=== PATIENT | female | born 1930 | race Caucasian/White ===

== ENCOUNTER 2017-03-13 10:47 | Emergency (ER) | payer MEDICARE, OTHER ==
[2017-03-13] MEDS ORDERED: Pepcid 20 MG VIAL IV ONE ×2 (10:58→11:04)
[2017-03-13] MEDS ORDERED: BABY ASPIRIN 81 MG CHEW PO ONE (10:58)
[2017-03-13] MEDS ORDERED: Sodium Chloride 0.9% 1000 ML 1,000 ML IV SCH (11:00)
[2017-03-13] MEDS ORDERED: BABY ASPIRIN 81 MG CHEW ONE (11:04)
[2017-03-13] MEDS ORDERED: Sodium Chloride 0.9% 1000 ML 1,000 ML ONE (11:04)
[2017-03-13 11:09] LABS: BASOPHIL % 0.8 % (0.0-0.4); Eosinophil % 0.3 % (0.00-5.0); Granulocytes % 68.4 % (36.0-66.0); Lymphocytes % 21.9 % (24.0-44.0); Mean Cell Volume 92.2 fl (78-100); Mean Corpuscular Hemoglobin 29.7 pg (26-32); Mean Platelet Volume 9.5 fl (6-9.5); Monocytes % 8.6 % (0.0-12.0); Platelet Count 224 K/mm3 (150-450); Red Cell Distribution Width 13.5 % (11.5-14.0); White Blood Count 8.7 K/mm3 (4.0-10.5)
--- NOTE | 2017-03-13 11:10 | ERPHSYRPT ---
- History of Present Illness Time Seen by Provider: 03/13/17 10:58 Historian: patient, family (daughter) Patient Subjective Stated Complaint: states chest starting aching this AM at approx 0830 today. denies sweating with slight SOB at thhat time. denies CP at present time Triage Nursing Assessment: denies CP at present.. lungs clear bilateral. no SOB noted Physician History: CC: chest pain Hx: 86 y/o patient of Dr Katz. She has hx of leaky valve, high chol , and dementia. She stays with daughters. She was fine yesterday, with her normal gradual decline in health condition. Today was in car riding to town and had chest pain, sweating, and aching. The chest pain is now gone. It was an inside pain worrisome for heart. No blood thinners. Has declined cardiac procedures in the past due to frailty. She takes digoxin. Timing/Duration: today (8:30AM) Quality: aching Nitro Today/Relief: no nitro taken today Aspirin Treatment Today: no aspirin today Allergies/Adverse Reactions: calcitonin,salmon,synthetic [From Miacalcin] Allergy (Verified 02/06/14 11:42) erythromycin base [Erythromycin Base] Allergy (Verified 02/06/14 11:42) Rash raloxifene HCl [From Evista] Allergy (Verified 02/06/14 11:42) Home Medications: Amlodipine Besylate [Norvasc] 5 mg PO DAILY 01/11/14 [History] Aspirin 81 mg PO DAILY 01/11/14 [History] Atorvastatin Calcium [Lipitor] 10 mg PO DAILY 01/11/14 [History] Digoxin 0.25 mg PO DAILY 01/11/14 [History] Furosemide 20 mg PO DAILY 01/11/14 [History] Alprazolam 0.25 mg [xanAX 0.25 MG] 0.25 mg PO HS 05/06/16 [History] Calcium Carb/Vit D3/Minerals [Calcium 600+D Plus Minerals Tb] 1 each PO DAILY [History] Calcium Carbonate/Vitamin D3 [Vitamin D-3 400 Units Tablet] 1 each PO DAILY 06/11 [History] FA/Mv,Ca,Iron,Min/Lycopene/Lut [Centrum Tablet] 1 each PO DAILY 05/06/16 [ History] Ferrous Gluconate [Iron] 240 mg PO DAILY 05/06/16 [History] Glucos/MSM/Colg II/C/Man/Hrb21 [Glucosamine-MSM Complex Cap] 1 each PO DAILY 06/11 [History] Krill/Om3/Dha/Epa/Om6/Lip/Astx [Krill Oil 1,000 mg Softgel] 1 each PO DAILY 06/11 [History] Levothyroxine Sodium 112 Mcg [Synthroid 112 Mcg] 37.5 mcg PO DAILY [History] Potassium 99 mg PO DAILY 05/06/16 [History] Hx Tetanus, Diphtheria Vaccination/Date Given: Yes Hx Influenza Vaccination/Date Given: Yes Hx Pneumococcal Vaccination/Date Given: Yes Immunizations Up to Date: Yes - Review of Systems Constitutional: No Fever, No Chills Eyes: No Symptoms Ears, Nose, & Throat: No Symptoms Respiratory: Dyspnea, No Cough Cardiac: Chest Pain (currently gone), No Edema, No Syncope Abdominal/Gastrointestinal: No Abdominal Pain, No Vomiting, No Diarrhea Skin: No Rash Neurological: No Headache All Other Systems: Reviewed and Negative - Past Medical History Pertinent Past Medical History: Yes Neurological History: No Pertinent History ENT History: No Pertinent History Cardiac History: Hypertension, Other Respiratory History: No Pertinent History Endocrine Medical History: No Pertinent History Musculoskeletal History: No Pertinent History GI Medical History: No Pertinent History History: No Pertinent History Psycho-Social History: No Pertinent History Female Reproductive Disorders: No Pertinent History Other Medical History: leaking heart valve - Past Surgical History Past Surgical History: Yes Neuro Surgical History: No Pertinent History Cardiac: No Pertinent History Respiratory: No Pertinent History Gastrointestinal: Cholecystectomy Genitourinary: No Pertinent History Musculoskeletal: No Pertinent History Female Surgical History: No Pertinent History - Social History Smoking Status: Never smoker Exposure to second hand smoke: No Alcohol Use: None Drug Use: none Patient Lives Alone: No (close support from daughters) - Female History Hx Now: No - Nursing Vital Signs Nursing Vital Signs: Initial Vital Signs Temperature 97.6 F 03/13/17 10:49 Pulse Rate 69 03/13/17 10:49 Respiratory Rate 18 03/13/17 10:49 Blood Pressure 137/70 03/13/17 10:49 O2 Sat by Pulse Oximetry 99 03/13/17 10:49 Pain Scale Pain Intensity 0 - Physical Exam General Appearance: alert, other (frail, pleasant elderly lady) Eye Exam: PERRL/EOMI Ears, Nose, Throat Exam: moist mucous membranes Neck Exam: normal inspection, non-tender, supple Respiratory Exam: diminished breath sounds Cardiovascular Exam: regular rate/rhythm Gastrointestinal/Abdomen Exam: soft, No tenderness, No guarding Extremity Exam: pedal edema (trace) Neurologic Exam: alert, cooperative, sensation nml, other (mostly oriented but answers are a little vague consistent with early dementia), No motor deficits Skin Exam: warm, dry SpO2 Interpretation: normal SpO2: 98 Oxygen Delivery: Room Air - Course Nursing assessment & vital signs reviewed: Yes EKG Interpreted by Me: RATE (66), Sinus Rhythm, Left Bundle Branch Block (QRS 146), Non-specific ST Changes, Other (no old tracing here for comparison- attempting to obtain from office) - Radiology Exams cxr X-ray Interpretation: Teleradiologist Report, Negative Ordered Tests: Active Orders 24 hr Category Date Time Status Property Utilization Manager STAT Care 03/13/17 10:58 Active EKG-ER Only STAT Care 03/13/17 10:58 Active IV Insertion STAT Care 03/13/17 10:58 Active Oxygen-ED Only NASAL CANNULA 2 lpm Care 03/13/17 10:58 Active Pulse Oximetry (ED) STAT Care 03/13/17 10:58 Active CHEST 1 VIEW (PORTABLE) Stat Exams 03/13/17 10:58 Completed CBC W DIFF Stat Lab 03/13/17 10:50 Completed CMP Stat Lab 03/13/17 10:50 Completed DIGOXIN Stat Lab 03/13/17 10:50 Completed NT PRO BNP Stat Lab 03/13/17 10:50 Completed PROTIME WITH INR Stat Lab 03/13/17 10:50 Completed PTT Stat Lab 03/13/17 10:50 Completed TROPONIN Q3H Lab 03/13/17 10:50 Completed TROPONIN Q3H Lab 03/13/17 14:00 Ordered TROPONIN Q3H Lab 03/13/17 17:00 Ordered TROPONIN Q3H Lab 03/13/17 20:00 Ordered TROPONIN Q3H Lab 03/13/17 23:00 Ordered Medication Summary Generic Name Dose Route Start Last Admin Trade Name Freq PRN Reason Stop Dose Admin Sodium Chloride 1,000 mls @ 50 mls/hr 03/13/17 11:00 03/13/17 11:09 Sodium Chloride 0.9% 1000 Ml IV 04/12/17 10:59 50 mls/hr .Q20H FIDEL Administration Discontinued Medications Generic Name Dose Route Start Last Admin Trade Name Aliza PRN Reason Stop Dose Admin Aspirin 324 mg 03/13/17 10:58 03/13/17 11:09 Baby Aspirin 81 Mg Chew PO 03/13/17 10:59 324 mg STAT ONE Administration Aspirin Confirm 03/13/17 11:04 Baby Aspirin 81 Mg Chew Administered 03/13/17 11:05 Dose 324 mg .ROUTE .STK-[employer] ONE Famotidine 20 mg 03/13/17 10:58 03/13/17 11:09 Pepcid 20 Mg Vial IV 03/13/17 10:59 20 mg STAT ONE Administration Famotidine Confirm 03/13/17 11:04 Pepcid 20 Mg Vial Administered 03/13/17 11:05 Dose 20 mg IV .STK-MED ONE Lab/Rad Data: Laboratory Result Diagrams 03/13/17 10:50 03/13/17 10:50 Laboratory Results 03/13/17 03/13/17 03/13/17 Range/Units 10:50 10:50 10:50 WBC (4.0-10.5) K/mm3 RBC (4.1-5.4) M/mm3 Hgb (12.0-16.0) gm/dl Hct (35-47) % MCV (78-100) fl MCH (26-32) pg MCHC (32-36) g/dl RDW (11.5-14.0) % Plt Count (150-450) K/mm3 MPV (6-9.5) fl Gran % (36.0-66.0) % Lymphocytes % (24.0-44.0) % Monocytes % (0.0-12.0) % Eosinophils % (0.00-5.0) % Basophils % (0.0-0.4) % Basophils # (0-0.4) INR 1.08 (0.8-3.0) APTT 38.2 H (25.3-37.0) SECONDS Sodium 139 (136-145) mEq/L Potassium 3.6 (3.5-5.1) mEq/L Chloride 103 (98-107) mEq/L Carbon Dioxide 29.6 (21-32) mEq/L Anion Gap 9.7 (5-15) MEQ/L BUN 14 (9-20) mg/dL Creatinine 0.69 (0.55-1.30) mg/dl Estimated GFR > 60 ML/MIN Glucose 95 (70-110) MG/DL Calcium 9.7 (8.5-10.1) mg/dL Total Bilirubin 0.60 (0.2-1.0) mg/dL AST 33 (15-37) U/L ALT 22 (12-78) U/L Alkaline Phosphatase 76 (46-116) U/L Troponin I < 0.017 (0.000-0.056) ng/ml NT-Pro-B Natriuret Pep 528 H (0-450) pg/ml Serum Total Protein 7.6 (6.4-8.2) gm/dL Albumin 3.6 (3.4-5.0) g/dL Digoxin 1.95 H* (0.5-1.5) ng/ml 03/13/17 Range/Units 10:50 WBC 8.7 (4.0-10.5) K/mm3 RBC 3.60 L (4.1-5.4) M/mm3 Hgb 10.7 L (12.0-16.0) gm/dl Hct 33.2 L (35-47) % MCV 92.2 (78-100) fl MCH 29.7 (26-32) pg MCHC 32.2 (32-36) g/dl RDW 13.5 (11.5-14.0) % Plt Count 224 (150-450) K/mm3 MPV 9.5 (6-9.5) fl Gran % 68.4 H (36.0-66.0) % Lymphocytes % 21.9 L (24.0-44.0) % Monocytes % 8.6 (0.0-12.0) % Eosinophils % 0.3 (0.00-5.0) % Basophils % 0.8 (0.0-0.4) % Basophils # 0.07 (0-0.4) INR (0.8-3.0) APTT (25.3-37.0) SECONDS Sodium (136-145) mEq/L Potassium (3.5-5.1) mEq/L Chloride (98-107) mEq/L Carbon Dioxide (21-32) mEq/L Anion Gap (5-15) MEQ/L BUN (9-20) mg/dL Creatinine (0.55-1.30) mg/dl Estimated GFR ML/MIN Glucose (70-110) MG/DL Calcium (8.5-10.1) mg/dL Total Bilirubin (0.2-1.0) mg/dL AST (15-37) U/L ALT (12-78) U/L Alkaline Phosphatase (46-116) U/L Troponin I (0.000-0.056) ng/ml NT-Pro-B Natriuret Pep (0-450) pg/ml Serum Total Protein (6.4-8.2) gm/dL Albumin (3.4-5.0) g/dL Digoxin (0.5-1.5) ng/ml - Progress Progress Note: 03/13/17 12:17 Remains pain free. No chest pain now. She has living will and has declined open heart procedures or angioplasty. She does want CPR. Called Dr Arnie Dhillon and will place in obs. Will see patient in: hospital (observation) Counseled pt/family regarding: lab results, diagnosis, need for follow-up, rad results - Departure Time of Disposition: 12:18 Departure Disposition: Observation Clinical Impression: Chest pain, rule out acute myocardial infarction, Digitalis toxicity Condition: Fair Critical Care Time: No Referrals: JAMILAH DHILLON [Primary Care Provider] -
[2017-03-13 11:22] LABS: INR 1.08 (0.8-3.0); PROTIME 12.2 SECONDS (9.95-12.35)
[2017-03-13 11:25] LABS: PTT 38.2 SECONDS (25.3-37.0)
--- NOTE | 2017-03-13 11:27 | XRAY ---
Indication: Chest pain. Comparison: June 27, 2007. Portable chest again hyperinflated and clear. Heart and mediastinal structures within normal limits for AP portable technique. Bony thorax intact again with osteopenia and degenerative changes. Impression: Stable nonacute hyperinflated chest.
[2017-03-13 11:40] LABS: ALBUMIN 3.6 g/dL (3.4-5.0); ALKALINE PHOSPHATASE 76 U/L (46-116); ANION GAP 9.7 MEQ/L (5-15); BLOOD UREA NITROGEN 14 mg/dL (9-20); CHLORIDE 103 mEq/L (98-107); Carbon Dioxide 29.6 mEq/L (21-32); Glucose 95 MG/DL (70-110); Potassium 3.6 mEq/L (3.5-5.1); SGOT/AST 33 U/L (15-37); SGPT/ALT 22 U/L (12-78); SODIUM 139 mEq/L (136-145); Total Protein 7.6 gm/dL (6.4-8.2)
[2017-03-13 12:46] VITALS: BP 159/68; PULSE 68; O2SAT 97
== END 2017-03-13 13:10 | disposition home or self-care (01) ==
LOC: ED 10:47
DX: R07.89 Other chest pain (principal); T46.0X5A Adverse effect of cardiac-stimulant glycosides and drugs of similar action, initial encounter; Z79.899 Other long term (current) drug therapy; I10 Essential (primary) hypertension
CPT/HCPCS: 36000; 36415; 71010; 80053; 80162; 83880; 84484; 85025; 85610; 85730; 93005; 93041; 96360; 96361; 96374; 99284; A9270-GY

== ENCOUNTER 2017-06-25 12:57 | Emergency (ER) | payer MEDICARE, OTHER ==
--- NOTE | 2017-06-25 13:22 | ERPHSYRPT ---
- History of Present Illness Time Seen by Provider: 06/25/17 13:17 Source: patient Exam Limitations: no limitations Patient Subjective Stated Complaint: pt states on 06/23/17 in the evening her foot got hung up on her bed and she fell onto right knee. Triage Nursing Assessment: pt pink, warm, dry. right knee bruised with swelling. pedal pulses strong. Physician History: patient states she tripped and fell hitting her right knee on carpeted floor 2 days ago. Patient has been walking with some discomfort. Patient noticed increasing dull pain/discomfort along with increased swelling and bruising to the anterior knee area. Patient denies any other injuries, including hip or ankle and foot. Patient denies any numbness, tingling or weakness of distal extremities. Patient has not taken any meds f Method of Injury: fell Occurred: days ago (2) Quality: intermittent, aching Severity of Pain-Max: mild Severity of Pain-Current: mild Lower Extremities Pain: knee: right Modifying Factors: Improves With: immobilization (improves), movement (worsens) Associated Symptoms: none Allergies/Adverse Reactions: calcitonin,salmon,synthetic [From Miacalcin] Allergy (Verified 06/25/17 13:11) erythromycin base [Erythromycin Base] Allergy (Verified 06/25/17 13:11) Rash raloxifene HCl [From Evista] Allergy (Verified 06/25/17 13:11) Home Medications: Amlodipine Besylate [Norvasc] 5 mg PO DAILY 01/11/14 [History] Aspirin 81 mg PO DAILY 01/11/14 [History] Atorvastatin Calcium [Lipitor] 10 mg PO DAILY 01/11/14 [History] Digoxin 0.25 mg PO DAILY 01/11/14 [History] Furosemide 20 mg PO DAILY 01/11/14 [History] Alprazolam 0.25 mg [xanAX 0.25 MG] 0.25 mg PO HS 05/06/16 [History] FA/Mv,Ca,Iron,Min/Lycopene/Lut [Centrum Tablet] 1 each PO DAILY 05/06/16 [ History] Glucos/MSM/Colgii/C/Man/Herb21 [Glucosamine-MSM Complex Cap] 1 each PO DAILY 06/11 [History] Krill/Om3/Dha/Epa/Om6/Lip/Astx [Krill Oil 1,000 mg Softgel] 1 each PO DAILY 06/11 [History] Levothyroxine Sodium 112 Mcg [Synthroid 112 Mcg] 37.5 mcg PO DAILY [History] Potassium 90 mg PO DAILY 05/06/16 [History] Alendronate Sodium [Fosamax] 70 mg PO DAILY 03/13/17 [History] Benton-3/Dha/Epa/Fish Oil [Benton-3 Fish Oil 1,000 mg Sftg] 1 each PO DAILY [History] Zinc Amino Acid Chelate [Zinc Chelated] 50 mg PO DAILY 03/13/17 [History] Hx Tetanus, Diphtheria Vaccination/Date Given: Yes (up to date) Hx Influenza Vaccination/Date Given: Yes Hx Pneumococcal Vaccination/Date Given: Yes Immunizations Up to Date: Yes - Review of Systems Constitutional: No Fever, No Chills Eyes: No Symptoms Ears, Nose, & Throat: No Symptoms Respiratory: No Cough, No Dyspnea Cardiac: No Chest Pain, No Edema, No Syncope Abdominal/Gastrointestinal: No Abdominal Pain, No Nausea, No Vomiting, No Diarrhea Genitourinary Symptoms: No Dysuria Musculoskeletal: Fall, Injury, Joint Pain (R Knee), Joint Swelling (R Knee), No Back Pain, No Neck Pain Skin: No Rash Neurological: No Dizziness, No Focal Weakness, No Sensory Changes Psychological: No Symptoms Endocrine: No Symptoms All Other Systems: Reviewed and Negative - Past Medical History Pertinent Past Medical History: Yes Neurological History: No Pertinent History, Dementia ENT History: No Pertinent History Cardiac History: Hypertension, Other Respiratory History: No Pertinent History Endocrine Medical History: No Pertinent History Musculoskeletal History: No Pertinent History GI Medical History: No Pertinent History History: No Pertinent History Psycho-Social History: No Pertinent History Female Reproductive Disorders: No Pertinent History Other Medical History: leaking heart valve - Past Surgical History Past Surgical History: Yes Neuro Surgical History: No Pertinent History Cardiac: No Pertinent History Respiratory: No Pertinent History Gastrointestinal: Cholecystectomy Genitourinary: No Pertinent History Musculoskeletal: No Pertinent History Female Surgical History: No Pertinent History - Social History Smoking Status: Never smoker Exposure to second hand smoke: No Alcohol Use: None Drug Use: none Patient Lives Alone: No - Female History Hx Now: No - Nursing Vital Signs Nursing Vital Signs: Initial Vital Signs Temperature 97.3 F 06/25/17 13:05 Pulse Rate 78 11/30/17 13:05 Respiratory Rate 16 06/25/17 13:05 Blood Pressure 165/77 06/25/17 13:05 O2 Sat by Pulse Oximetry 99 06/25/17 13:05 Pain Scale Pain Intensity 5 - Physical Exam General Appearance: alert Eyes, Ears, Nose, Throat Exam: moist mucous membranes Neck Exam: non-tender, supple Cardiovascular/Respiratory Exam: chest non-tender, normal breath sounds, regular rate/rhythm, no respiratory distress Gastrointestinal/Abdominal Exam: non-tender, guarding Back Exam: normal inspection, No vertebral tenderness Hips Exam: bilateral: non-tender, normal inspection, normal range of motion, no evidence of injury Knees Exam: right knee: bone tenderness, ecchymosis (Mild swelling noted), swelling, left knee: non-tender, normal inspection, normal range of motion, no evidence of injury Ankle Exam: bilateral ankle: non-tender, normal inspection, normal range of motion, no evidence of injury Foot Exam: bilateral foot: non-tender, normal inspection, normal range of motion , no evidence of injury DTR - Lower Extremities Exam: knee (R): 2+, knee (L): 2+ Neuro/Tendon Exam: normal sensation, normal motor functions Mental Status Exam: alert, oriented x 3, cooperative Skin Exam: normal color, warm, dry SpO2: 99 Oxygen Delivery: Room Air - Course Nursing assessment & vital signs reviewed: Yes - Radiology Exams Knee X-ray Interpretation: Teleradiologist Report, Negative, No Fracture Ordered Tests: Active Orders 24 hr Category Date Time Status KNEE (3 VIEWS) Stat Exams 06/25/17 Completed - Progress Progress: unchanged Progress Note: 06/25/17 13:22 patient was given Motrin for discomfort Counseled pt/family regarding: diagnosis, rad results - Departure Time of Disposition: 14:02 Departure Disposition: Home Clinical Impression: Contusion of right knee Condition: Stable Critical Care Time: No Referrals: JAMILAH LEZAMA [Primary Care Provider] - Additional Instructions: Ice, elevat eany sore areas. May take Motrin or Tylenol for pain. Return for worse right knee pain, swelling, numbness, tingling or weakness of distal extremity
--- NOTE | 2017-06-25 13:42 | XRAY ---
Indication: Pain, bruising, and swelling following fall. Comparison: None 3 views of the right knee demonstrates anterior medial soft tissue swelling, osteopenia, minimal tricompartmental degenerative changes, and mild scattered vascular calcifications. No other bony, articular, or soft tissue abnormalities.
[2017-06-25 13:54] VITALS: BP 144/77; PULSE 76
[2017-06-25] MEDS ORDERED: MOTRIN 600 MG PO ONE (14:00)
[2017-06-25] MEDS ORDERED: MOTRIN 400 MG ONE (14:03)
[2017-06-25] MEDS ORDERED: MOTRIN 400 MG PO ONE (14:05)
[2017-06-25 14:23] VITALS: O2SAT 97
== END 2017-06-25 14:22 | disposition home or self-care (01) ==
LOC: ED 12:57
DX: S80.01XA Contusion of right knee, initial encounter (principal); W01.198A Fall on same level from slipping, tripping and stumbling with subsequent striking against other object, initial encounter; I10 Essential (primary) hypertension; Z79.899 Other long term (current) drug therapy
CPT/HCPCS: 73562; 99282; A9270-GY

== ENCOUNTER 2017-07-02 10:28 | Emergency (ER) | payer MEDICARE, OTHER ==
--- NOTE | 2017-07-02 11:21 | ERPHSYRPT ---
- History of Present Illness Time Seen by Provider: 07/02/17 11:11 Source: patient, family Exam Limitations: no limitations Patient Subjective Stated Complaint: fell nine days ago at home on carpet injuring right knee and lower leg. seen in er at that time. xrays negative. today states right knee is better but bruising is going down leg and right ankle and foot. states increase in swelling in right ankle. daughter states they are concerned about a blood clot in her leg. Triage Nursing Assessment: right knee, lower leg, ankle and foot have old brusing and noted swelling to right ankle. good pedal pulse noted in right foot. Physician History: This is a 87-year-old white female with history of high blood pressure dementia and a leaky heart valve. She is brought by her family. Complaint is bruising and pain in the right lower extremity for 9 days. According the family patient fell 90s ago she had x-rays of her knee which was negative. Family states the patient has had bruising from her knee all the way down into her right foot the patient has been complaining of intermittent pain in her right distal leg. Family is worried about a blood clot they state that she's had increased swelling in her right leg. Past medical history includes high blood pressure, dementia, leaky heart valve. Past surgical history includes cholecystectomy. Method of Injury: fell (fell 9 days ago now with new swelling right lower leg and bruising) Occurred: days ago (9 days ago) Quality: constant Lower Extremities Pain: leg: right, foot: right Modifying Factors: Improves With: nothing Associated Symptoms: none Allergies/Adverse Reactions: calcitonin,salmon,synthetic [From Miacalcin] Allergy (Verified 06/25/17 13:11) erythromycin base [Erythromycin Base] Allergy (Verified 06/25/17 13:11) Rash raloxifene HCl [From Evista] Allergy (Verified 06/25/17 13:11) Home Medications: Amlodipine Besylate [Norvasc] 5 mg PO DAILY 01/11/14 [History] Aspirin 81 mg PO DAILY 01/11/14 [History] Atorvastatin Calcium [Lipitor] 10 mg PO DAILY 01/11/14 [History] Digoxin 0.25 mg PO DAILY 01/11/14 [History] Furosemide 20 mg PO DAILY 01/11/14 [History] Alprazolam 0.25 mg [xanAX 0.25 MG] 0.25 mg PO HS 05/06/16 [History] FA/Mv,Ca,Iron,Min/Lycopene/Lut [Centrum Tablet] 1 each PO DAILY 05/06/16 [ History] Glucos/MSM/Colgii/C/Man/Herb21 [Glucosamine-MSM Complex Cap] 1 each PO DAILY 06/11 [History] Krill/Om3/Dha/Epa/Om6/Lip/Astx [Krill Oil 1,000 mg Softgel] 1 each PO DAILY 06/11 [History] Levothyroxine Sodium 112 Mcg [Synthroid 112 Mcg] 37.5 mcg PO DAILY [History] Potassium 90 mg PO DAILY 05/06/16 [History] Alendronate Sodium [Fosamax] 70 mg PO DAILY 03/13/17 [History] [place]-3/Dha/Epa/Fish Oil [[place]-3 Fish Oil 1,000 mg Sftg] 1 each PO DAILY [History] Zinc Amino Acid Chelate [Zinc Chelated] 50 mg PO DAILY 03/13/17 [History] Hx Tetanus, Diphtheria Vaccination/Date Given: Yes (2013) Hx Influenza Vaccination/Date Given: Yes Hx Pneumococcal Vaccination/Date Given: Yes - Review of Systems Constitutional: No Fever, No Chills Eyes: No Symptoms Ears, Nose, & Throat: No Symptoms Respiratory: No Cough, No Dyspnea Cardiac: No Chest Pain, No Edema, No Syncope Abdominal/Gastrointestinal: No Abdominal Pain, No Nausea, No Vomiting, No Diarrhea Genitourinary Symptoms: No Dysuria Musculoskeletal: Other (pain right distal lower leg, bruising right leg and foot ) Skin: Other (bruising right leg and foot) Neurological: No Dizziness, No Focal Weakness, No Sensory Changes Psychological: No Symptoms Endocrine: No Symptoms All Other Systems: Reviewed and Negative - Past Medical History Pertinent Past Medical History: Yes Neurological History: No Pertinent History, Dementia ENT History: No Pertinent History Cardiac History: Hypertension, Other Respiratory History: No Pertinent History Endocrine Medical History: No Pertinent History Musculoskeletal History: No Pertinent History GI Medical History: No Pertinent History History: No Pertinent History Psycho-Social History: No Pertinent History Female Reproductive Disorders: No Pertinent History Other Medical History: leaking heart valve - Past Surgical History Past Surgical History: Yes Neuro Surgical History: No Pertinent History Cardiac: No Pertinent History Respiratory: No Pertinent History Gastrointestinal: Cholecystectomy Genitourinary: No Pertinent History Musculoskeletal: No Pertinent History Female Surgical History: No Pertinent History - Social History Smoking Status: Never smoker Exposure to second hand smoke: Yes Alcohol Use: None Drug Use: none Patient Lives Alone: Yes - Female History Hx Now: No - Nursing Vital Signs Nursing Vital Signs: Initial Vital Signs Temperature 97.5 F 07/02/17 10:36 Pulse Rate 75 07/02/17 10:36 Respiratory Rate 16 07/02/17 10:36 Blood Pressure 167/70 07/02/17 10:36 O2 Sat by Pulse Oximetry 96 07/02/17 10:36 Pain Scale Pain Intensity 0 - Physical Exam General Appearance: alert Eyes, Ears, Nose, Throat Exam: moist mucous membranes Neck Exam: non-tender, supple Cardiovascular/Respiratory Exam: chest non-tender, normal breath sounds, regular rate/rhythm, no respiratory distress Gastrointestinal/Abdominal Exam: non-tender, guarding Hips Exam: bilateral: non-tender, normal inspection, normal range of motion, no evidence of injury Legs Exam: right leg: ecchymosis (bruising right distal leg), left leg: normal inspection, no evidence of injury, bilateral leg: non-tender Knees Exam: right knee: swelling (mild edema right knee), left knee: non-tender , normal inspection, no evidence of injury, bilateral knee: normal range of motion Ankle Exam: right ankle: nodules (bruising right ankle), left ankle: normal inspection, bilateral ankle: non-tender, normal range of motion, no evidence of injury Foot Exam: right foot: ecchymosis (bruising right foot laterally), left foot: normal inspection, no evidence of injury, bilateral foot: non-tender, normal range of motion DTR - Lower Extremities Exam: ankle (R): 2+, ankle (L): 2+ Neuro/Tendon Exam: normal sensation, normal motor functions Mental Status Exam: alert, oriented x 3, cooperative Skin Exam: No normal color (bruising right lower leg and foot) SpO2 Interpretation: normal (96%) SpO2: 96 Oxygen Delivery: Room Air - Course Nursing assessment & vital signs reviewed: Yes - Radiology Exams Right Lower Leg X-ray Interpretation: Discussed w/ radiologist (x-ray right leg: Mild osteopenia , mild scattered vascular calcifications.no other bony, articular, or soft tissue abnormalities) - Radiology Ultrasound Exam Venous Lower Extremity Ultrasound: discussed w/radiologist, Other (venous Doppler right lower extremity. Right leg negative for DVT) Ordered Tests: Active Orders 24 hr Category Date Time Status LOWER LEG Stat Exams 07/02/17 11:16 Completed VENOUS UNILAT/LIMITED EXTREMIT [US] Stat Exams 07/02/17 Completed BMP Stat Lab 07/02/17 11:15 Completed CBC W DIFF Stat Lab 07/02/17 12:00 Completed D-DIMER QUANTITATION Stat Lab 07/02/17 12:00 Completed PROTIME WITH INR Stat Lab 07/02/17 12:00 Completed PTT Stat Lab 07/02/17 12:00 Completed Medication Summary Discontinued Medications Generic Name Dose Route Start Last Admin Trade Name Freq PRN Reason Stop Dose Admin Potassium Chloride 20 meq 07/02/17 13:21 Klor Con 10 Meq PO 07/02/17 13:22 STAT ONE Lab/Rad Data: Laboratory Result Diagrams 07/02/17 12:00 07/02/17 11:15 Laboratory Results 07/02/17 07/02/17 07/02/17 Range/Units 12:00 12:00 11:15 WBC 8.7 (4.0-10.5) K/mm3 RBC 3.34 L (4.1-5.4) M/mm3 Hgb 9.8 L (12.0-16.0) gm/dl Hct 31.7 L (35-47) % MCV 94.9 (78-100) fl MCH 29.3 (26-32) pg MCHC 30.9 L (32-36) g/dl RDW 14.3 H (11.5-14.0) % Plt Count 208 (150-450) K/mm3 MPV 9.5 (6-9.5) fl Gran % 69.9 H (36.0-66.0) % Lymphocytes % 19.7 L (24.0-44.0) % Monocytes % 9.0 (0.0-12.0) % Eosinophils % 0.7 (0.00-5.0) % Basophils % 0.7 (0.0-0.4) % Basophils # 0.06 (0-0.4) INR 0.91 (0.8-3.0) APTT 21.2 L (25.3-37.0) SECONDS D-Dimer 1047.24 H* (0-500) ng/mL Sodium 143 (136-145) mEq/L Potassium 3.4 L (3.5-5.1) mEq/L Chloride 106 (98-107) mEq/L Carbon Dioxide 27.5 (21-32) mEq/L Anion Gap 13.0 (5-15) MEQ/L BUN 12 (9-20) mg/dL Creatinine 0.67 (0.55-1.30) mg/dl Estimated GFR > 60 ML/MIN Glucose 95 (70-110) MG/DL Calcium 9.6 (8.5-10.1) mg/dL - Progress Progress: improved Progress Note: 07/02/17 13:24 87-year-old white female with a fall 9 days ago patient apparently seen in this emergency room x-rays of the knee was negative. Patient with continued bruising and edema of her right lower extremity bruising extends down the right leg to the right foot patient with occasional pains in her right lower leg. Family brings the patient and they're concerned that she has a blood clot in her leg patient did have an elevated d-dimer therefore venous Doppler was obtained of the right lower extremity patient without evidence of DVT x-ray of the right lower leg was remarkable for mild osteopenia and mild scattered vascular calcifications no other bony, articular, or soft tissue abnormalities were noted Patient's CBC remarkable for hemoglobin 9.8 hematocrit 31.7 platelets 208 patient's vitals are stable chemistry essentially normal with the exception of potassium of 3.4. Will give patient 1 potassium tablet 20 mEq orally Will plan to discharge patient. Patient to follow-up with Dr. Dhillon her family doctor. - Departure Time of Disposition: 13:27 Departure Disposition: Home Clinical Impression: Right leg swelling, Right leg pain, History of recent fall, history of contusion right knee Traumatic ecchymosis of right lower leg Qualifiers: Encounter type: initial encounter Qualified Code(s): S80.11XA - Contusion of right lower leg, initial encounter Condition: Fair Critical Care Time: No Referrals: JMAILAH DHILLON [Primary Care Provider] - Additional Instructions: Return home. Cool packs to right leg 24-48 hours. Tylenol every 4 hours as needed for pain. Ice and elevate right leg 24-48 hours. Follow-up with Dr. Dhillon. Return for acute distress or for severe symptoms.
--- NOTE | 2017-07-02 11:43 | XRAY ---
Indication: Pain, bruising, and swelling following fall one week ago. Comparison: None 2 views of the right lower leg demonstrates mild osteopenia and mild scattered vascular calcifications. No other bony, articular, or soft tissue abnormalities.
[2017-07-02 12:10] LABS: BASOPHIL % 0.7 % (0.0-0.4); Eosinophil % 0.7 % (0.00-5.0); Granulocytes % 69.9 % (36.0-66.0); Lymphocytes % 19.7 % (24.0-44.0); Mean Cell Volume 94.9 fl (78-100); Mean Corpuscular Hemoglobin 29.3 pg (26-32); Mean Platelet Volume 9.5 fl (6-9.5); Platelet Count 208 K/mm3 (150-450); Red Blood Count 3.34 M/mm3 (4.1-5.4); Red Cell Distribution Width 14.3 % (11.5-14.0); White Blood Count 8.7 K/mm3 (4.0-10.5)
[2017-07-02 12:20] LABS: BLOOD UREA NITROGEN 12 mg/dL (9-20); CHLORIDE 106 mEq/L (98-107); Carbon Dioxide 27.5 mEq/L (21-32); Glucose 95 MG/DL (70-110); Potassium 3.4 mEq/L (3.5-5.1); SODIUM 143 mEq/L (136-145)
[2017-07-02 12:26] LABS: INR 0.91 (0.8-3.0); PROTIME 10.1 SECONDS (9.95-12.35)
[2017-07-02 12:29] LABS: PTT 21.2 SECONDS (25.3-37.0)
--- NOTE | 2017-07-02 13:17 | XRAY ---
Indication: Right leg edema. Two-dimensional sonogram and color Doppler imaging of the major venous vessels of the right leg was performed. Comparison: None No thrombus seen in the examined deep venous vessels of the right leg including greater saphenous vein. Veins demonstrate normal compressibility. Venous waveforms are normal with and without augmentation. Impression: Right leg negative for DVT.
[2017-07-02] MEDS ORDERED: Klor Con 10 MEQ PO ONE ×3 (13:21→13:35)
[2017-07-02 13:40] VITALS: BP 143/77; PULSE 82; O2SAT 98
== END 2017-07-02 13:51 | disposition home or self-care (01) ==
LOC: ED 10:28
DX: S80.11XA Contusion of right lower leg, initial encounter (principal); M79.89 Other specified soft tissue disorders; M79.604 Pain in right leg; Z91.81 History of falling; W18.30XA Fall on same level, unspecified, initial encounter; M25.471 Effusion, right ankle; I10 Essential (primary) hypertension; Z79.899 Other long term (current) drug therapy
CPT/HCPCS: 36415; 73590; 80048; 85025; 85379; 85610; 85730; 93971; 99284; A9270-GY

== ENCOUNTER 2017-08-31 15:22 | Emergency (ER) | payer MEDICARE, OTHER ==
[2017-08-31] MEDS ORDERED: TYLENOL 325 MG PO ONE (15:40)
--- NOTE | 2017-08-31 15:58 | ERPHSYRPT ---
- History of Present Illness Time Seen by Provider: 08/31/17 15:32 Source: patient, family (daughter) Patient Subjective Stated Complaint: pt here for a near fall on sat. she was taking laundry upstairs and lost balance and fell against door, pt co pain to right rib area Triage Nursing Assessment: pt alert but confused at times. resp easy, skin w/d/ p. moves all ext well, no bruising or abrasions noted Physician History: CC: right rib pain HX: 87 y/o patient with dementia lives at home. She was carrying laundry up the stairs two days ago and bumped her right ribs against the door. Pain in this area since. Pt does not remember the incident. No abd pain. No shortness of breath. She sees Dr Dhillon. She has hx of dementia and UTI's. Allergies/Adverse Reactions: calcitonin,salmon,synthetic [From Miacalcin] Allergy (Verified 08/31/17 15:31) erythromycin base [Erythromycin Base] Allergy (Verified 08/31/17 15:31) Rash raloxifene HCl [From Evista] Allergy (Verified 08/31/17 15:31) Home Medications: Amlodipine Besylate [Norvasc] 5 mg PO DAILY 01/11/14 [History] Aspirin 81 mg PO DAILY 01/11/14 [History] Atorvastatin Calcium [Lipitor] 10 mg PO DAILY 01/11/14 [History] Digoxin 0.25 mg PO DAILY 01/11/14 [History] Furosemide 20 mg PO DAILY 01/11/14 [History] Alprazolam 0.25 mg [xanAX 0.25 MG] 0.25 mg PO HS 05/06/16 [History] Krill/Om3/Dha/Epa/Om6/Lip/Astx [Krill Oil 1,000 mg Softgel] 1 each PO DAILY 06/11 [History] Levothyroxine Sodium 112 Mcg [Synthroid 112 Mcg] 37.5 mcg PO DAILY [History] Potassium 90 mg PO DAILY 05/06/16 [History] Alendronate Sodium [Fosamax] 70 mg PO DAILY 03/13/17 [History] [place]-3/Dha/Epa/Fish Oil [[place]-3 Fish Oil 1,000 mg Sftg] 1 each PO DAILY [History] Hx Tetanus, Diphtheria Vaccination/Date Given: Yes (2013) Hx Influenza Vaccination/Date Given: Yes Hx Pneumococcal Vaccination/Date Given: Yes Immunizations Up to Date: Yes - Review of Systems Constitutional: Malaise, No Fever, No Chills Eyes: No Symptoms Respiratory: No Cough, No Dyspnea Cardiac: Chest Pain (right ribs) Abdominal/Gastrointestinal: No Abdominal Pain, No Nausea, No Vomiting, No Diarrhea Genitourinary Symptoms: No Dysuria Musculoskeletal: Injury (ribs), No Back Pain, No Neck Pain Neurological: No Dizziness, No Focal Weakness, No Parasthesia All Other Systems: Reviewed and Negative - Past Medical History Pertinent Past Medical History: Yes Neurological History: Dementia ENT History: No Pertinent History Cardiac History: Other Respiratory History: No Pertinent History Endocrine Medical History: Hypothyroidism Musculoskeletal History: Osteoarthritis, Osteoporosis GI Medical History: No Pertinent History History: No Pertinent History Psycho-Social History: No Pertinent History Female Reproductive Disorders: No Pertinent History Other Medical History: one open heart valve, poor circulation, thyroid medication, medication for OS. 3 years ago fractured her wrist. - Past Surgical History Past Surgical History: Yes Neuro Surgical History: No Pertinent History Cardiac: No Pertinent History Respiratory: No Pertinent History Gastrointestinal: Cholecystectomy Genitourinary: No Pertinent History Musculoskeletal: No Pertinent History Female Surgical History: No Pertinent History - Social History Smoking Status: Never smoker Exposure to second hand smoke: No Alcohol Use: None Drug Use: none Patient Lives Alone: No - Female History Hx Last Menstrual Period: post - Nursing Vital Signs Nursing Vital Signs: Initial Vital Signs Temperature 97.4 F 08/31/17 15:37 Pulse Rate 68 08/31/17 15:37 Respiratory Rate 16 08/31/17 15:37 Blood Pressure 179/74 08/31/17 15:37 O2 Sat by Pulse Oximetry 97 08/31/17 15:37 Pain Scale Pain Intensity 3 - Physical Exam General Appearance: alert Eye Exam: PERRL/EOMI Ears, Nose, Throat Exam: normal ENT inspection, moist mucous membranes Neck Exam: normal inspection, non-tender, supple, No midline tenderness Respiratory Exam: normal breath sounds, chest tenderness (right lower lateral ribs) Cardiovascular Exam: regular rate/rhythm Gastrointestinal/Abdomen Exam: soft, No tenderness, No distention, No mass, No guarding Neurologic Exam: alert, cooperative, No motor deficits Skin Exam: warm, dry, No rash SpO2 Interpretation: normal SpO2: 97 Oxygen Delivery: Room Air - Course Nursing assessment & vital signs reviewed: Yes Ordered Tests: Active Orders 24 hr Category Date Time Status Cath for Specimen-Straight STAT Care 08/31/17 15:40 Active EKG-ER Only STAT Care 08/31/17 17:22 Active IV Insertion STAT Care 08/31/17 15:40 Active CHEST 2 VIEWS (PA AND LAT) Stat Exams 08/31/17 16:02 Completed CBC W DIFF Stat Lab 08/31/17 16:15 Completed CMP Stat Lab 08/31/17 16:15 Completed CULTURE,URINE Stat Lab 08/31/17 15:40 Received DIGOXIN Stat Lab 08/31/17 16:15 Completed UA W/ MICROSCOPIC Stat Lab 08/31/17 15:40 Completed Medication Summary Discontinued Medications Generic Name Dose Route Start Last Admin Trade Name Freq PRN Reason Stop Dose Admin Acetaminophen 650 mg 08/31/17 15:40 Tylenol 325 Mg PO 08/31/17 15:41 STAT ONE Lab/Rad Data: Laboratory Result Diagrams 08/31/17 16:15 08/31/17 16:15 Laboratory Results 08/31/17 08/31/17 08/31/17 Range/Units 16:15 16:15 16:15 WBC 7.8 (4.0-10.5) K/mm3 RBC 3.93 L (4.1-5.4) M/mm3 Hgb 11.6 L (12.0-16.0) gm/dl Hct 36.7 (35-47) % MCV 93.4 (78-100) fl MCH 29.5 (26-32) pg MCHC 31.6 L (32-36) g/dl RDW 13.1 (11.5-14.0) % Plt Count 216 (150-450) K/mm3 MPV 9.9 H (6-9.5) fl Gran % 63.5 (36.0-66.0) % Lymphocytes % 24.7 (24.0-44.0) % Monocytes % 9.8 (0.0-12.0) % Eosinophils % 1.5 (0.00-5.0) % Basophils % 0.5 (0.0-0.4) % Basophils # 0.04 (0-0.4) Sodium 142 (136-145) mEq/L Potassium 2.8 L* (3.5-5.1) mEq/L Chloride 101 (98-107) mEq/L Carbon Dioxide 35.0 H (21-32) mEq/L Anion Gap 9.4 (5-15) MEQ/L BUN 12 (9-20) mg/dL Creatinine 0.83 (0.55-1.30) mg/dl Estimated GFR > 60 ML/MIN Glucose 107 (70-110) MG/DL Calcium 10.4 H (8.5-10.1) mg/dL Total Bilirubin 0.40 (0.2-1.0) mg/dL AST 27 (15-37) U/L ALT 18 (12-78) U/L Alkaline Phosphatase 75 (46-116) U/L Serum Total Protein 8.0 (6.4-8.2) gm/dL Albumin 4.2 (3.4-5.0) g/dL Ur Collection Type Urine Color (YELLOW) Urine Appearance (CLEAR) Urine pH (5-6) Ur Specific [place] (1.005-1.025) Urine Protein (Negative) Urine Ketones (NEGATIVE) Urine Blood (0-5) [place]/ul Urine Nitrite (NEGATIVE) Urine Bilirubin (NEGATIVE) Urine Urobilinogen (0-1) mg/dL Ur Leukocyte Esterase (NEGATIVE) Urine Microscopic RBC (0-2) /HPF Urine Microscopic WBC (0-5) /HPF Ur Epithelial Cells (FEW) /HPF Urine Bacteria (NEGATIVE) /HPF Hyaline Casts (0-2) /LPF Urine Mucus (NEGATIVE) /HPF Urine Culture Reflexed (NO) Urine Glucose (NEGATIVE) mg/dL Digoxin 0.90 (0.5-1.5) ng/ml Specimen Received 08/31/17 Range/Units 15:40 WBC (4.0-10.5) K/mm3 RBC (4.1-5.4) M/mm3 Hgb (12.0-16.0) gm/dl Hct (35-47) % MCV (78-100) fl MCH (26-32) pg MCHC (32-36) g/dl RDW (11.5-14.0) % Plt Count (150-450) K/mm3 MPV (6-9.5) fl Gran % (36.0-66.0) % Lymphocytes % (24.0-44.0) % Monocytes % (0.0-12.0) % Eosinophils % (0.00-5.0) % Basophils % (0.0-0.4) % Basophils # (0-0.4) Sodium (136-145) mEq/L Potassium (3.5-5.1) mEq/L Chloride (98-107) mEq/L Carbon Dioxide (21-32) mEq/L Anion Gap (5-15) MEQ/L BUN (9-20) mg/dL Creatinine (0.55-1.30) mg/dl Estimated GFR ML/MIN Glucose (70-110) MG/DL Calcium (8.5-10.1) mg/dL Total Bilirubin (0.2-1.0) mg/dL AST (15-37) U/L ALT (12-78) U/L Alkaline Phosphatase (46-116) U/L Serum Total Protein (6.4-8.2) gm/dL Albumin (3.4-5.0) g/dL Ur Collection Type CLEAN CATCH Urine Color YELLOW (YELLOW) Urine Appearance CLOUDY (CLEAR) Urine pH 8.0 (5-6) Ur Specific [place] 1.015 (1.005-1.025) Urine Protein 50 (Negative) Urine Ketones TRACE (NEGATIVE) Urine Blood 50 (0-5) [place]/ul Urine Nitrite NEGATIVE (NEGATIVE) Urine Bilirubin NEGATIVE (NEGATIVE) Urine Urobilinogen NORMAL (0-1) mg/dL Ur Leukocyte Esterase 2+ (NEGATIVE) Urine Microscopic RBC 5-10 (0-2) /HPF Urine Microscopic WBC 15-25 (0-5) /HPF Ur Epithelial Cells FEW (FEW) /HPF Urine Bacteria MODERATE (NEGATIVE) /HPF Hyaline Casts 0-2 (0-2) /LPF Urine Mucus SLIGHT (NEGATIVE) /HPF Urine Culture Reflexed YES (NO) Urine Glucose NEGATIVE (NEGATIVE) mg/dL Digoxin (0.5-1.5) ng/ml Specimen Received 08/31/17 1615 - Progress Progress Note: 08/31/17 17:29 Daughter met with social services analyst regarding services. Pt wants to go home and daughter agrees. K low and she has been on OTC K. She has UTI. Will start abtx, Rx K, and follow up Dr Dhillon. CXR shows no pntx or fx. Counseled pt/family regarding: lab results, diagnosis, need for follow-up, rad results - Departure Time of Disposition: 17:30 Departure Disposition: Home Clinical Impression: Contusion of rib on right side, Hypokalemia, UTI (urinary tract infection) Condition: Fair Critical Care Time: No Referrals: JAMILAH DHILLON [Primary Care Provider] - Instructions: Bruised Rib (DC), Urinary Tract Infection, Adult (DC), Hypokalemia (DC), Preventing Falls in the Older Adult Additional Instructions: Rx Potassium. Rx keflex for antibiotic. See Dr Dhillon this week. Return for problems or concerns. Prescriptions: Cephalexin Mh 250 mg [Keflex 250 mg] 250 mg PO TID #21 capsule Potassium Chloride [K-Dur] 10 meq PO BID #30 [email or web address]
--- NOTE | 2017-08-31 16:11 | XRAY ---
Indication: Right rib pain following fall. Comparison: March 13, 2017. PA/lateral chest again hyperinflated and clear. Heart is not enlarged. Bony thorax again demonstrates osteopenia, moderate degenerative changes, scoliosis, and remote appearing multilevel thoracic compression deformities. Impression: Nonacute hyperinflated chest with chronic features.
[2017-08-31 16:32] LABS: BASOPHIL % 0.5 % (0.0-0.4); Basophil (Absolute #) 0.04 (0-0.4); Eosinophil % 1.5 % (0.00-5.0); Eosinophil (Absolute #) 0.12 (0-0.5); Granulocyte Absolute (ANC) 4.93 (1.4-6.9); Granulocytes % 63.5 % (36.0-66.0); Hematocrit 36.7 % (35-47); Hemoglobin 11.6 gm/dl (12.0-16.0); Lymphocyte (Absolute #) 1.92 (1.0-4.6); Lymphocytes % 24.7 % (24.0-44.0); Mean Cell Volume 93.4 fl (78-100); Mean Corpuscular Hemoglobin 29.5 pg (26-32); Mean Corpuscular Hgb Concent. 31.6 g/dl (32-36); Mean Platelet Volume 9.9 fl (6-9.5); Monocyte (Absolute #) 0.76 (0.0-1.3); Monocytes % 9.8 % (0.0-12.0); Platelet Count 216 K/mm3 (150-450); Red Blood Count 3.93 M/mm3 (4.1-5.4); Red Cell Distribution Width 13.1 % (11.5-14.0); White Blood Count 7.8 K/mm3 (4.0-10.5)
[2017-08-31 16:35] LABS: Appearance CLOUDY (CLEAR); Bilirubin NEGATIVE (NEGATIVE); Blood 50 Ery/ul (0-5); Glucose NEGATIVE (NEGATIVE); Ketones TRACE (NEGATIVE); Leukocyte Esterase 2+ (NEGATIVE); Nitrite NEGATIVE (NEGATIVE); Protein,Urine Dip 50 (Negative); Specific Gravity 1.015 (1.005-1.025); Urobilinogen NORMAL mg/dL (0-1)
[2017-08-31 16:40] LABS: Bacteria MODERATE /HPF (NEGATIVE); Epithelial Cells FEW /HPF (FEW); Hyaline Casts 0-2 /LPF (0-2); Mucus SLIGHT /HPF (NEGATIVE); WBC 15-25 /HPF (0-5)
[2017-08-31 16:59] LABS: ALBUMIN 4.2 g/dL (3.4-5.0); ALKALINE PHOSPHATASE 75 U/L (46-116); ANION GAP 9.4 MEQ/L (5-15); BLOOD UREA NITROGEN 12 mg/dL (9-20); CHLORIDE 101 mEq/L (98-107); Calcium 10.4 mg/dL (8.5-10.1); Creatinine 1 0.83 mg/dl (0.55-1.30); EST GLOMERULAR FILTRATION RATE > 60 ML/MIN; Glucose 107 MG/DL (70-110); SGOT/AST 27 U/L (15-37); SGPT/ALT 18 U/L (12-78); SODIUM 142 mEq/L (136-145)
[2017-08-31 17:04] LABS: Potassium 2.8 mEq/L (3.5-5.1)
[2017-08-31] MEDS ORDERED: K-LYTE 25 MEQ PO ONE (17:27)
[2017-08-31 17:33] VITALS: PULSE 78
[2017-08-31] MEDS ORDERED: TYLENOL 325 MG ONE (17:37)
[2017-08-31] MEDS ORDERED: K-LYTE 25 MEQ ONE (17:38)
[2017-08-31 18:18] VITALS: BP 140/70; O2SAT 96
== END 2017-08-31 18:37 | disposition home or self-care (01) ==
LOC: ED 15:22
DX: S20.211A Contusion of right front wall of thorax, initial encounter (principal); Z79.899 Other long term (current) drug therapy; E87.6 Hypokalemia; N39.0 Urinary tract infection, site not specified; I45.10 Unspecified right bundle-branch block
CPT/HCPCS: 99284; 93005; 81000; 36415; 80162; 85025; 80053; 87086; 71046; P9612; 36000; 99283; A9270-GY

== ENCOUNTER 2017-09-14 13:07 | Inpatient (IN) | payer MEDICARE, OTHER ==
[~2017-09-14 13:07] MED LIST: Haldol 5 MG IM ONE
[2017-09-14] MEDS ORDERED: SUBLIMAZE 100 MCG/2 ML IV ONE (13:34)
--- NOTE | 2017-09-14 13:43 | ERPHSYRPT ---
- History of Present Illness Time Seen by Provider: 09/14/17 13:13 Source: patient, family (daughter Tracey) Physician History: CC: fall Hx: 87 y/o patient arrived by PMV. [facility] She has pain in right inguinal area and low back. Daughter states she actually fell at home in her kitchen. Lives along. Friends [facility] They got her there but she had pain and was unable to walk more so they called family. Daughter thinks she passed out at home. She had a fall 2 weeks ago. Daughter and son met with director social service at that time and have since toured assisted living facilities. The patient denies headache, chest pain. Not short of breath. Most pain is in low back and right inguinal area. Occurred: this morning Loss of Consciousness: unsure Severity of Pain-Max: moderate Severity of Pain-Current: moderate Allergies/Adverse Reactions: calcitonin,salmon,synthetic [From Miacalcin] Allergy (Verified 09/14/17 13:40) erythromycin base [Erythromycin Base] Allergy (Verified 09/14/17 13:40) Rash raloxifene HCl [From Evista] Allergy (Verified 09/14/17 13:40) Home Medications: Amlodipine Besylate [Norvasc] 5 mg PO DAILY 01/11/14 [History] Aspirin 81 mg PO DAILY 01/11/14 [History] Atorvastatin Calcium [Lipitor] 10 mg PO DAILY 01/11/14 [History] Digoxin 0.25 mg PO DAILY 01/11/14 [History] Furosemide 20 mg PO DAILY 01/11/14 [History] Alprazolam 0.25 mg [xanAX 0.25 MG] 0.25 mg PO HS 05/06/16 [History] Krill/Om3/Dha/Epa/Om6/Lip/Astx [Krill Oil 1,000 mg Softgel] 1 each PO DAILY 06/11 [History] Levothyroxine Sodium 112 Mcg [Synthroid 112 Mcg] 37.5 mcg PO DAILY [History] Potassium 90 mg PO DAILY 05/06/16 [History] Alendronate Sodium [Fosamax] 70 mg PO DAILY 03/13/17 [History] Sumrall-3/Dha/Epa/Fish Oil [Sumrall-3 Fish Oil 1,000 mg Sftg] 1 each PO DAILY [History] Hx Tetanus, Diphtheria Vaccination/Date Given: Yes (2013) Hx Influenza Vaccination/Date Given: Yes Hx Pneumococcal Vaccination/Date Given: Yes - Review of Systems Constitutional: Malaise, No Fever, No Chills Eyes: No Vision Changes Ears, Nose, & Throat: No Symptoms Respiratory: No Dyspnea Cardiac: Syncope (?), No Chest Pain Abdominal/Gastrointestinal: No Abdominal Pain, No Nausea, No Vomiting Musculoskeletal: Back Pain, Neck Pain, Fall, Joint Pain (right inguinal) Skin: No Rash Neurological: No Focal Weakness, No Headache, No Parasthesia All Other Systems: Reviewed and Negative - Past Medical History Pertinent Past Medical History: Yes Neurological History: Dementia ENT History: No Pertinent History Cardiac History: Other Respiratory History: No Pertinent History Endocrine Medical History: Hypothyroidism Musculoskeletal History: Osteoarthritis, Osteoporosis GI Medical History: No Pertinent History History: No Pertinent History Psycho-Social History: No Pertinent History Female Reproductive Disorders: No Pertinent History Other Medical History: Valve repair. Fracture. Hypothyroidism - Past Surgical History Past Surgical History: Yes Neuro Surgical History: No Pertinent History Cardiac: No Pertinent History Respiratory: No Pertinent History Gastrointestinal: Cholecystectomy Genitourinary: No Pertinent History Musculoskeletal: No Pertinent History Female Surgical History: No Pertinent History - Social History Smoking Status: Never smoker Exposure to second hand smoke: No Alcohol Use: None Drug Use: none Patient Lives Alone: No (lives alone with close family support) - Nursing Vital Signs Nursing Vital Signs: Initial Vital Signs Temperature 98.1 F 09/14/17 13:19 Pulse Rate 86 09/14/17 13:19 Respiratory Rate 16 09/14/17 13:19 Blood Pressure 153/78 09/14/17 13:19 O2 Sat by Pulse Oximetry 99 09/14/17 13:19 Pain Scale Pain Intensity 2 - Physical Exam General Appearance: alert Head Injury: no evidence of injury Eye Exam: PERRL/EOMI ENT Exam: airway nml Neck Exam: pain on movement of neck Respiratory/Chest Exam: normal breath sounds, No chest tenderness Cardiovascular Exam: regular rate/rhythm Gastrointestinal Exam: soft, No tenderness, No distention Genitalia Exam: No blood at urethral meatus Back Exam: other (scoliosis, low tender) Extremity Exam: other (decreased ROM right leg due to right inguinal pain) Neurologic Exam: alert, cooperative, custom seamstress II-XII nml as tested, sensation nml, No motor deficits Skin Exam: warm, dry - Course Nursing assessment & vital signs reviewed: Yes Ordered Tests: Active Orders 24 hr Category Date Time Status EKG-ER Only STAT Care 09/14/17 13:25 Active Cabrera [Catheter-[place] Cabrera] STAT Care 09/14/17 14:00 Active IV Insertion STAT Care 09/14/17 13:25 Active NPO (ED) STAT Care 09/14/17 13:25 Active CERVICAL SPINE WO CONTRAST [CT] Stat Exams 09/14/17 13:34 Completed CHEST 1 VIEW (PORTABLE) Stat Exams 09/14/17 13:26 Completed HEAD WITHOUT CONTRAST [CT] Stat Exams 09/14/17 13:34 Completed LUMBAR LIMITED (2 OR 3 VIEWS) Stat Exams 09/14/17 13:27 Completed PELVIS (1 OR 2 VIEWS) Stat Exams 09/14/17 13:26 Completed CBC W DIFF Stat Lab 09/14/17 13:46 Completed CMP Routine Lab 09/14/17 13:46 Completed DIGOXIN Routine Lab 09/14/17 13:46 Completed Lactic Acid Stat Lab 09/14/17 14:52 Results MAGNESIUM Stat Lab 09/14/17 14:10 Completed PROTIME WITH INR Stat Lab 09/14/17 13:46 Completed PTT Stat Lab 09/14/17 13:46 Completed TROPONIN Q3H Lab 09/14/17 13:46 Completed TROPONIN Q3H Lab 09/14/17 16:45 Ordered TROPONIN Q3H Lab 09/14/17 19:45 Ordered TROPONIN Q3H Lab 09/14/17 22:45 Ordered TROPONIN Q3H Lab 09/15/17 01:45 Ordered UA W/RFX UR CULTURE Stat Lab 09/14/17 13:26 Ordered Medication Summary Generic Name Dose Route Start Last Admin Trade Name Freq PRN Reason Stop Dose Admin Sodium Chloride 1,000 mls @ 50 mls/hr 09/14/17 13:45 09/14/17 14:34 Sodium Chloride 0.9% 1000 Ml IV 10/14/17 13:44 50 mls/hr .Q20H FIDEL Administration Potassium Chloride 100 mls @ 25 mls/hr 09/14/17 14:16 09/14/17 14:34 Potassium Chloride 20 Meq In Water 100ml IV 09/14/17 18:15 25 mls/hr STAT ONE Administration Discontinued Medications Generic Name Dose Route Start Last Admin Trade Name Aliza PRN Reason Stop Dose Admin Fentanyl Citrate 25 mcg 09/14/17 13:34 09/14/17 14:34 Sublimaze 100 Mcg/2 Ml IV 09/14/17 13:35 25 mcg STAT ONE Administration Fentanyl Citrate Confirm 09/14/17 14:32 Sublimaze 100 Mcg/2 Ml Administered 09/14/17 14:33 Dose 100 mcg .ROUTE .STK-MED ONE Potassium Chloride Confirm 09/14/17 14:32 Potassium Chloride 20 Meq In Water 100ml Administered 09/14/17 14:33 Dose 100 mls @ ud IV .STK-MED ONE Lab/Rad Data: Laboratory Result Diagrams 09/14/17 13:46 09/14/17 13:46 Laboratory Results 09/14/17 09/14/17 09/14/17 Range/Units 14:52 14:10 13:46 WBC (4.0-10.5) K/mm3 RBC (4.1-5.4) M/mm3 Hgb (12.0-16.0) gm/dl Hct (35-47) % MCV (78-100) fl MCH (26-32) pg MCHC (32-36) g/dl RDW (11.5-14.0) % Plt Count (150-450) K/mm3 MPV (6-9.5) fl Gran % (36.0-66.0) % Lymphocytes % (24.0-44.0) % Monocytes % (0.0-12.0) % Eosinophils % (0.00-5.0) % Basophils % (0.0-0.4) % Basophils # (0-0.4) INR (0.8-3.0) APTT (25.3-37.0) SECONDS Sodium 140 (136-145) mEq/L Potassium 2.9 L* (3.5-5.1) mEq/L Chloride 100 (98-107) mEq/L Carbon Dioxide 27.4 (21-32) mEq/L Anion Gap 15.4 H (5-15) MEQ/L BUN 16 (9-20) mg/dL Creatinine 0.87 (0.55-1.30) mg/dl Estimated GFR > 60 ML/MIN Glucose 88 (70-110) MG/DL Lactic Acid 2.2 H (0.4-2.0) Calcium 10.0 (8.5-10.1) mg/dL Magnesium 1.8 (1.8-2.4) mg/dL Total Bilirubin 0.50 (0.2-1.0) mg/dL AST 32 (15-37) U/L ALT 24 (12-78) U/L Alkaline Phosphatase 87 (46-116) U/L Troponin I < 0.017 (0.000-0.056) ng/ml Serum Total Protein 8.7 H (6.4-8.2) gm/dL Albumin 4.6 (3.4-5.0) g/dL Digoxin 1.05 (0.5-1.5) ng/ml 09/14/17 09/14/17 Range/Units 13:46 13:46 WBC 16.5 H (4.0-10.5) K/mm3 RBC 4.24 (4.1-5.4) M/mm3 Hgb 12.1 (12.0-16.0) gm/dl Hct 38.5 (35-47) % MCV 90.8 (78-100) fl MCH 28.5 (26-32) pg MCHC 31.4 L (32-36) g/dl RDW 13.3 (11.5-14.0) % Plt Count 250 (150-450) K/mm3 MPV 9.4 (6-9.5) fl Gran % 84.7 H (36.0-66.0) % Lymphocytes % 9.1 L (24.0-44.0) % Monocytes % 5.7 (0.0-12.0) % Eosinophils % 0.3 (0.00-5.0) % Basophils % 0.2 (0.0-0.4) % Basophils # 0.03 (0-0.4) INR 1.01 (0.8-3.0) APTT 31.2 (25.3-37.0) SECONDS Sodium (136-145) mEq/L Potassium (3.5-5.1) mEq/L Chloride (98-107) mEq/L Carbon Dioxide (21-32) mEq/L Anion Gap (5-15) MEQ/L BUN (9-20) mg/dL Creatinine (0.55-1.30) mg/dl Estimated GFR ML/MIN Glucose (70-110) MG/DL Lactic Acid (0.4-2.0) Calcium (8.5-10.1) mg/dL Magnesium (1.8-2.4) mg/dL Total Bilirubin (0.2-1.0) mg/dL AST (15-37) U/L ALT (12-78) U/L Alkaline Phosphatase (46-116) U/L Troponin I (0.000-0.056) ng/ml Serum Total Protein (6.4-8.2) gm/dL Albumin (3.4-5.0) g/dL Digoxin (0.5-1.5) ng/ml - Progress Progress Note: 09/14/17 15:12 CT head/cervical neg. She has pubic symphisis fx nondisplaced. She has low K. IV Potassium started. CAlled Dr Dhillon and will place in IP [facility] for bed rest. UA pending. Will see patient in: hospital (full admit) Counseled pt/family regarding: lab results, diagnosis, need for follow-up, rad results - Departure Time of Disposition: 15:13 Departure Disposition: In-patient Admission Clinical Impression: Hypokalemia, Syncope, Closed fracture of symphysis pubis Condition: Fair Critical Care Time: No Referrals: JAMILAH DHILLON [Primary Care Provider] -
[2017-09-14] MEDS ORDERED: Sodium Chloride 0.9% 1000 ML 1,000 ML IV SCH (13:45)
[2017-09-14 13:48] LABS: BASOPHIL % 0.2 % (0.0-0.4); Basophil (Absolute #) 0.03 (0-0.4); Eosinophil % 0.3 % (0.00-5.0); Eosinophil (Absolute #) 0.05 (0-0.5); Granulocyte Absolute (ANC) 13.97 (1.4-6.9); Granulocytes % 84.7 % (36.0-66.0); Hematocrit 38.5 % (35-47); Hemoglobin 12.1 gm/dl (12.0-16.0); Lymphocytes % 9.1 % (24.0-44.0); Mean Cell Volume 90.8 fl (78-100); Mean Corpuscular Hemoglobin 28.5 pg (26-32); Mean Corpuscular Hgb Concent. 31.4 g/dl (32-36); Mean Platelet Volume 9.4 fl (6-9.5); Monocyte (Absolute #) 0.94 (0.0-1.3); Monocytes % 5.7 % (0.0-12.0); Platelet Count 250 K/mm3 (150-450); Red Blood Count 4.24 M/mm3 (4.1-5.4); Red Cell Distribution Width 13.3 % (11.5-14.0); White Blood Count 16.5 K/mm3 (4.0-10.5)
[2017-09-14 14:09] LABS: ALBUMIN 4.6 g/dL (3.4-5.0); ALKALINE PHOSPHATASE 87 U/L (46-116); ANION GAP 15.4 MEQ/L (5-15); BLOOD UREA NITROGEN 16 mg/dL (9-20); CHLORIDE 100 mEq/L (98-107); Carbon Dioxide 27.4 mEq/L (21-32); Creatinine 1 0.87 mg/dl (0.55-1.30); DIGOXIN 1.05 ng/ml (0.5-1.5); EST GLOMERULAR FILTRATION RATE > 60 ML/MIN; Glucose 88 MG/DL (70-110); SGOT/AST 32 U/L (15-37); SGPT/ALT 24 U/L (12-78); SODIUM 140 mEq/L (136-145); Total Protein 8.7 gm/dL (6.4-8.2)
[2017-09-14 14:13] LABS: Potassium 2.9 mEq/L (3.5-5.1); TROPONIN < 0.017 ng/ml (0.000-0.056)
[2017-09-14] MEDS ORDERED: POTASSIUM CHLORIDE 20 mEq IN WATER 100ML 100 ML IV ONE ×2 (14:16→14:32)
--- NOTE | 2017-09-14 14:19 | XRAY ---
Indication: Pain following fall. Comparison: August 31, 2017. Portable chest remains hyperinflated and clear. Heart and mediastinal structures within normal limits. Bony thorax again demonstrates osteopenia, multilevel degenerative changes, scoliosis, and remote-appearing multilevel thoracic compression deformities. Impression: Stable nonacute hyperinflated chest with chronic features.
--- NOTE | 2017-09-14 14:21 | XRAY ---
Indication: Pain following fall. Comparison: None 3 views of the lumbar spine demonstrates 5 lumbar vertebral segments with osteopenia and nondisplaced right pubic symphysis acute fracture. Elsewhere mild/moderate multilevel degenerative spondylosis including 5 mm L5 spondylolisthesis, mild double curvature scoliosis, remote appearing lower thoracic compression deformities, and heavy scattered vascular calcifications.
--- NOTE | 2017-09-14 14:21 | XRAY ---
Indication: Pain following fall. Comparison: None Single AP pelvis demonstrates osteopenia and nondisplaced right pubic symphysis acute fracture. Lumbar spine reported separately.
[2017-09-14 14:23] LABS: INR 1.01 (0.8-3.0)
[2017-09-14 14:26] LABS: PTT 31.2 SECONDS (25.3-37.0)
--- NOTE | 2017-09-14 14:26 | XRAY ---
Indication: Pain following fall. Confusion. Multiple contiguous axial images obtained through the head without contrast. Comparison: February 06, 2014. Several images slightly degraded by motion artifact. Otherwise stable global atrophy and mild periventricular degenerative micro-ischemia bilaterally. No acute intracranial hemorrhage, abnormal extra-axial fluid collection, or mass effect. Fourth ventricle is midline. Bony calvarium intact. Visualized paranasal sinuses and mastoid air cells are clear. Impression: Motion artifact. Grossly stable nonacute senile brain. CT DI 61.05
--- NOTE | 2017-09-14 14:30 | XRAY ---
Indication: Pain following fall. Confusion. Multiple contiguous axial images obtained through the cervical spine. Sagittal and coronal reformatted images obtained. Comparison: None. Age-related osteopenia. Axial images negative for acute fracture, suspicious bony lesions, or spinal canal stenosis. Minimal C4-C6 degenerative endplate spurring and left sided facet arthropathy. Sagittal and coronal reformatted images demonstrates normal alignment with minimal C5-C6 disc space narrowing. No acute compression fracture, subluxation, or jumped facet. Normal-appearing craniocervical junction. Visualized noncontrasted soft tissues demonstrates scattered moderate bilateral carotid calcifications. Mild biapical pleural parenchymal fibrosis/scarring. CT head reported separately. Impression: 1. Negative acute fracture/subluxation. 2. Osteopenia and C4-C6 degenerative changes. CT DI 16.48
[2017-09-14] MEDS ORDERED: SUBLIMAZE 100 MCG/2 ML ONE (14:32)
[2017-09-14 14:55] LABS: Lactic Acid 2.2 (0.4-2.0)
[2017-09-14 15:18] LABS: Appearance CLEAR (CLEAR); Bilirubin NEGATIVE (NEGATIVE); Blood NEGATIVE Ery/ul (0-5); Glucose NEGATIVE (NEGATIVE); Ketones TRACE (NEGATIVE); Leukocyte Esterase NEGATIVE (NEGATIVE); Nitrite NEGATIVE (NEGATIVE); Protein,Urine Dip NEGATIVE (Negative); Urobilinogen NORMAL mg/dL (0-1)
[2017-09-14] MEDS ORDERED: TYLENOL 325 MG PO PRN (16:14)
[2017-09-14] MEDS: Dextrose 5%-Lr IV Solution 1000 ML 1,000 ML IV SCH (17:58)
[2017-09-14] MEDS ORDERED: FLAGYL 500 MG IVPB 500 MG/100 ML BAG IV ONE (18:31)
[2017-09-14] MEDS ORDERED: xanAX 0.25 MG ONE (18:31)
[2017-09-14] MEDS: xanAX 0.25 MG PO PRN (18:36)
[2017-09-14] MEDS: FLAGYL 500 MG IVPB 500 MG/100 ML BAG IV SCH (18:36)
[2017-09-14 20:14] LABS: Potassium 2.7 mEq/L (3.5-5.1); TROPONIN < 0.017 ng/ml (0.000-0.056)
[2017-09-14] MEDS: Norco 10/325 MG Tablet PO PRN (20:53)
[2017-09-14] MEDS: POTASSIUM CHLORIDE 20 mEq IN WATER 100ML 20 MEQ/100 ML BAG IV SCH (20:54)
[2017-09-14 21:58] LABS: 027 TOX PROD PRESUMPTIVE NEGATIVE (NEGATIVE); TOXIGENIC C. DIFF ORG NEGATIVE (NEGATIVE)
[2017-09-15] MEDS ORDERED: BENADRYL 50 MG/ML IV PRN (00:04)
[2017-09-15] MEDS ORDERED: Haldol 5 MG ONE (00:06)
[2017-09-15] MEDS: FLAGYL 500 MG IVPB 500 MG/100 ML BAG IV SCH ×5 (01:18→23:28)
[2017-09-15] MEDS: POTASSIUM CHLORIDE 20 mEq IN WATER 100ML 20 MEQ/100 ML BAG IV SCH (02:00)
[2017-09-15] MEDS ORDERED: Ativan 2 MG/1 ML VIAL IV PRN ×2 (03:07→06:38)
[2017-09-15 03:42] LABS: BLOOD UREA NITROGEN 11 mg/dL (9-20); CHLORIDE 105 mEq/L (98-107); Calcium 8.6 mg/dL (8.5-10.1); Carbon Dioxide 25.2 mEq/L (21-32); Creatinine 1 0.73 mg/dl (0.55-1.30); EST GLOMERULAR FILTRATION RATE > 60 ML/MIN; Glucose 96 MG/DL (70-110); Potassium 3.1 mEq/L (3.5-5.1); SODIUM 139 mEq/L (136-145)
[2017-09-15 03:47] LABS: BASOPHIL % 0.3 % (0.0-0.4); Basophil (Absolute #) 0.04 (0-0.4); Eosinophil % 1.8 % (0.00-5.0); Eosinophil (Absolute #) 0.24 (0-0.5); Granulocyte Absolute (ANC) 10.29 (1.4-6.9); Granulocytes % 79.3 % (36.0-66.0); Hematocrit 32.4 % (35-47); Hemoglobin 10.4 gm/dl (12.0-16.0); Lymphocyte (Absolute #) 1.52 (1.0-4.6); Lymphocytes % 11.7 % (24.0-44.0); Mean Cell Volume 93.6 fl (78-100); Mean Corpuscular Hgb Concent. 32.1 g/dl (32-36); Mean Platelet Volume 9.9 fl (6-9.5); Monocytes % 6.9 % (0.0-12.0); Platelet Count 222 K/mm3 (150-450); Red Blood Count 3.46 M/mm3 (4.1-5.4); Red Cell Distribution Width 13.5 % (11.5-14.0)
[2017-09-15] MEDS ORDERED: ALENDRONATE SODIUM 70 MG PO SCH (07:00)
[2017-09-15 08:38] LABS: Potassium 3.3 mEq/L (3.5-5.1)
--- NOTE | 2017-09-15 09:01 | PCM.HP ---
History of Present Illness - Chief Complaint Chief Complaint: fractured pelvis History of Present Illness: is a 87 year old female who was at the [facility] yesterday who was sitting in a chair and fell to the ground. She was found in ER to have an acute R pubic symphysis fracture. She denies any syncope, and none was reported to ER. Pt is a poor historian and is disoriented this morning. Overnight she was restless, there was concern she would pull out her mosley catheter. - Review of Systems All Other Systems: Unable due to dementia Medications & Allergies Home Medications: Home Medication List Amlodipine Besylate [Norvasc] 5 mg PO DAILY 01/11/14 [History Confirmed 09/14/17 ] Aspirin 81 mg PO DAILY 01/11/14 [History Confirmed 09/14/17] Atorvastatin Calcium [Lipitor] 10 mg PO DAILY 01/11/14 [History Confirmed ] Furosemide 20 mg PO DAILY 01/11/14 [History Confirmed 09/14/17] Alprazolam 0.25 mg [xanAX 0.25 MG] 0.25 mg PO TIDPRN 05/06/16 [History Confirmed 09/14/17] Krill/Om3/Dha/Epa/Om6/Lip/Astx [Krill Oil 1,000 mg Softgel] 1 each PO DAILY 06/11 [History Confirmed 09/14/17] Levothyroxine Sodium 112 Mcg [Synthroid 112 Mcg] 37.5 mcg PO DAILY [History Confirmed 09/14/17] Alendronate Sodium [Fosamax] 70 mg PO WEEKLY 03/13/17 [History Confirmed ] Ascorbic Acid [Vitamin C] 1,000 mg PO DAILY 09/14/17 [History Confirmed 09/14/17 ] Calcium Carbonate [Calcium] 600 mg PO DAILY 09/14/17 [History Confirmed 09/14/17 ] Digoxin 0.125 mg Tablet [Lanoxin 0.125MG TABLET] 0.125 mg PO DAILY [History Confirmed 09/14/17] Multivitamin [Multivitamins] 1 each PO DAILY 09/14/17 [History Confirmed ] Potassium 99 mg PO BID 09/14/17 [History Confirmed 09/14/17] Selenomethionine [Selenium] 200 mcg PO DAILY 09/14/17 [History Confirmed ] Allergies/Adverse Reactions: Allergies Allergy/AdvReac Type Severity Reaction Status Date / Time calcitonin,salmon,synthetic Allergy Verified 09/14/17 13:40 [From Miacalcin] erythromycin base Allergy Rash Verified 09/14/17 13:40 [Erythromycin Base] raloxifene HCl [From Evista] Allergy Verified 09/14/17 13:40 - Past Medical History Past Medical History: Yes Neurological History: Dementia ENT History: No Pertinent History Cardiac History: Other Respiratory History: No Pertinent History Endocrine Medical History: Hypothyroidism Musculoskelatal History: Osteoarthritis, Osteoporosis GI Medical History: No Pertinent History History: No Pertinent History Pyscho-Social History: No Pertinent History, Other Reproductive Disorders: No Pertinent History Comment: Valve repair. Fracture. Hypothyroidism - Female History Are you now?: No - Past Surgical History Past Surgical History: Yes Neuro Surgical History: No Pertinent History Cardiac History: No Pertinent History Respiratory Surgery: No Pertinent History GI Surgical History: Cholecystectomy Genitourinary Surgical Hx: No Pertinent History Musculskeletal Surgical Hx: No Pertinent History Female Surgical History: No Pertinent History - Social History Smoking Status: Never smoker Exposure to second hand smoke: No Alcohol: None Drug Use: none - Physical Exam Vital Signs: Vital Signs - 24 hr Temp Pulse Resp BP Pulse Ox 09/15/17 07:32 98.4 F 73 16 109/53 95 09/15/17 04:00 98.4 F 73 18 127/58 95 09/15/17 00:00 98.0 F 70 20 138/63 96 09/14/17 20:00 98.2 F 84 19 126/65 99 09/14/17 16:37 97.8 F 90 20 135/85 92 L 09/14/17 16:30 97.8 F 90 20 135/85 92 L 09/14/17 13:19 98.1 F 86 16 153/78 99 General Appearance: no apparent distress, alert, anxiety Neurologic Exam: cooperative, disoriented (time is Aug 1978, place is "[facility]" in [place]) Eye Exam: eyes nml inspection Neck Exam: normal inspection, non-tender, No lymphadenopathy Respiratory Exam: normal breath sounds, lungs clear, No crackles/rales, No rhonchi, No wheezing Cardiovascular Exam: regular rate/rhythm, normal heart sounds, No murmur Gastrointestinal/Abdomen Exam: soft, normal bowel sounds, No tenderness, No distention, No mass Back Exam: normal inspection, No rash Extremity Exam: No pedal edema, No swelling Skin Exam: normal color, warm, dry, No rash Results - Labs Lab/Micro Results: Lab Results-Last 24 Hours 09/14/17 09/14/17 09/14/17 Range/Units 16:44 17:11 17:50 WBC (4.0-10.5) K/mm3 RBC (4.1-5.4) M/mm3 Hgb (12.0-16.0) gm/dl Hct (35-47) % MCV (78-100) fl MCH (26-32) pg MCHC (32-36) g/dl RDW (11.5-14.0) % Plt Count (150-450) K/mm3 MPV (6-9.5) fl Gran % (36.0-66.0) % Lymphocytes % (24.0-44.0) % Monocytes % (0.0-12.0) % Eosinophils % (0.00-5.0) % Basophils % (0.0-0.4) % Basophils # (0-0.4) Sodium (136-145) mEq/L Potassium (3.5-5.1) mEq/L Chloride (98-107) mEq/L Carbon Dioxide (21-32) mEq/L Anion Gap (5-15) MEQ/L BUN (9-20) mg/dL Creatinine (0.55-1.30) mg/dl Estimated GFR ML/MIN Glucose (70-110) MG/DL Lactic Acid 1.7 (0.4-2.0) Calcium (8.5-10.1) mg/dL Magnesium (1.8-2.4) mg/dL Troponin I < 0.017 (0.000-0.056) ng/ml Prealbumin 27.5 (18.0-35.7) mg/dL Stl C. diff Tox B Gene (NEGATIVE) C.difficile 027-NAP1-B1 (NEGATIVE) 09/14/17 09/14/17 09/14/17 Range/Units 19:45 21:00 22:55 WBC (4.0-10.5) K/mm3 RBC (4.1-5.4) M/mm3 Hgb (12.0-16.0) gm/dl Hct (35-47) % MCV (78-100) fl MCH (26-32) pg MCHC (32-36) g/dl RDW (11.5-14.0) % Plt Count (150-450) K/mm3 MPV (6-9.5) fl Gran % (36.0-66.0) % Lymphocytes % (24.0-44.0) % Monocytes % (0.0-12.0) % Eosinophils % (0.00-5.0) % Basophils % (0.0-0.4) % Basophils # (0-0.4) Sodium (136-145) mEq/L Potassium 2.7 L* (3.5-5.1) mEq/L Chloride (98-107) mEq/L Carbon Dioxide (21-32) mEq/L Anion Gap (5-15) MEQ/L BUN (9-20) mg/dL Creatinine (0.55-1.30) mg/dl Estimated GFR ML/MIN Glucose (70-110) MG/DL Lactic Acid (0.4-2.0) Calcium (8.5-10.1) mg/dL Magnesium (1.8-2.4) mg/dL Troponin I < 0.017 < 0.017 (0.000-0.056) ng/ml Prealbumin (18.0-35.7) mg/dL Stl C. diff Tox B Gene NEGATIVE (NEGATIVE) C.difficile 027-NAP1-B1 PRESUMPTIVE NEGATIVE (NEGATIVE) 09/15/17 09/15/17 09/15/17 Range/Units 03:19 03:19 03:19 WBC 13.0 H (4.0-10.5) K/mm3 RBC 3.46 L (4.1-5.4) M/mm3 Hgb 10.4 L (12.0-16.0) gm/dl Hct 32.4 L (35-47) % MCV 93.6 (78-100) fl MCH 30.0 (26-32) pg MCHC 32.1 (32-36) g/dl RDW 13.5 (11.5-14.0) % Plt Count 222 (150-450) K/mm3 MPV 9.9 H (6-9.5) fl Gran % 79.3 H (36.0-66.0) % Lymphocytes % 11.7 L (24.0-44.0) % Monocytes % 6.9 (0.0-12.0) % Eosinophils % 1.8 (0.00-5.0) % Basophils % 0.3 (0.0-0.4) % Basophils # 0.04 (0-0.4) Sodium 139 (136-145) mEq/L Potassium 3.1 L (3.5-5.1) mEq/L Chloride 105 (98-107) mEq/L Carbon Dioxide 25.2 (21-32) mEq/L Anion Gap 12.0 (5-15) MEQ/L BUN 11 (9-20) mg/dL Creatinine 0.73 (0.55-1.30) mg/dl Estimated GFR > 60 ML/MIN Glucose 96 (70-110) MG/DL Lactic Acid (0.4-2.0) Calcium 8.6 (8.5-10.1) mg/dL Magnesium (1.8-2.4) mg/dL Troponin I < 0.017 (0.000-0.056) ng/ml Prealbumin (18.0-35.7) mg/dL Stl C. diff Tox B Gene (NEGATIVE) C.difficile 027-NAP1-B1 (NEGATIVE) 09/15/17 Range/Units 08:10 WBC (4.0-10.5) K/mm3 RBC (4.1-5.4) M/mm3 Hgb (12.0-16.0) gm/dl Hct (35-47) % MCV (78-100) fl MCH (26-32) pg MCHC (32-36) g/dl RDW (11.5-14.0) % Plt Count (150-450) K/mm3 MPV (6-9.5) fl Gran % (36.0-66.0) % Lymphocytes % (24.0-44.0) % Monocytes % (0.0-12.0) % Eosinophils % (0.00-5.0) % Basophils % (0.0-0.4) % Basophils # (0-0.4) Sodium (136-145) mEq/L Potassium 3.3 L (3.5-5.1) mEq/L Chloride (98-107) mEq/L Carbon Dioxide (21-32) mEq/L Anion Gap (5-15) MEQ/L BUN (9-20) mg/dL Creatinine (0.55-1.30) mg/dl Estimated GFR ML/MIN Glucose (70-110) MG/DL Lactic Acid (0.4-2.0) Calcium (8.5-10.1) mg/dL Magnesium 1.5 L (1.8-2.4) mg/dL Troponin I (0.000-0.056) ng/ml Prealbumin (18.0-35.7) mg/dL Stl C. diff Tox B Gene (NEGATIVE) C.difficile 027-NAP1-B1 (NEGATIVE) Assessment/Plan (1) Closed fracture of symphysis pubis Current Visit: Yes Status: Acute Qualifiers: Encounter type: initial encounter Laterality: right Qualified Code(s): S32.591A - Other specified fracture of right pubis, initial encounter for closed fracture Assessment & Plan: Ortho consult, PT consult today. After ortho consult her mosley catheter can be removed. Code(s): S32.599A - OTH FRACTURE OF UNSP PUBIS, INIT ENCNTR FOR CLOSED FRACTURE (2) Hypokalemia Current Visit: Yes Status: Acute Assessment & Plan: start higher dose of po K+. recheck in a.m. Code(s): E87.6 - HYPOKALEMIA (3) History of recent fall Current Visit: No Status: Acute Code(s): Z91.81 - HISTORY OF FALLING
[2017-09-15] MEDS: Calcium 500MG W/Vit D Tablet PO SCH (09:13)
[2017-09-15] MEDS: LASIX 20 MG PO SCH (09:14)
[2017-09-15] MEDS: Klor Con 10 MEQ PO SCH ×2 (09:14→20:46)
[2017-09-15] MEDS: THERAGRAN MULTIVITAMIN PO SCH (09:14)
[2017-09-15] MEDS: SYNTHROID 75 MCG PO SCH (09:15)
[2017-09-15] MEDS: NORVASC 5 MG PO SCH (09:16)
[2017-09-15] MEDS: Lanoxin 0.125MG TABLET PO SCH (09:16)
[2017-09-15] MEDS: Zocor 10MG PO SCH (09:17)
[2017-09-15] MEDS ORDERED: NON-FORMULARY ITEM (Atorvastatin Calcium [Lipitor] 10 MG) PO SCH (10:00)
[2017-09-15] MEDS ORDERED: NON-FORMULARY ITEM (Multivitamin [Multivitamins] 1 EACH) PO SCH (10:00)
[2017-09-15] MEDS ORDERED: SYNTHROID 112 MCG PO SCH (10:00)
[2017-09-15] MEDS ORDERED: NON-FORMULARY ITEM (Calcium Carbonate [Calcium] 600 MG) PO SCH (10:00)
[2017-09-15] MEDS ORDERED: NON-FORMULARY ITEM (Aspirin [Aspirin] 81 MG) PO SCH (10:00)
[2017-09-15] MEDS: Norco 10/325 MG Tablet PO PRN ×2 (15:12→20:46)
[2017-09-15] MEDS: xanAX 0.25 MG PO PRN (15:15)
[2017-09-15] MEDS: ENOXAPARIN SODIUM SQ SCH (16:03)
[2017-09-15] MEDS: ECOTRIN 81 MG PO SCH (16:57)
[2017-09-15] MEDS: Dextrose 5%-Lr IV Solution 1000 ML 1,000 ML IV SCH (16:57)
[2017-09-15] MEDS: xanAX 0.25 MG PO SCH (20:46)
[2017-09-16] MEDS: Norco 10/325 MG Tablet PO PRN ×2 (02:26→17:39)
[2017-09-16] MEDS: FLAGYL 500 MG IVPB 500 MG/100 ML BAG IV SCH ×4 (05:40→23:53)
[2017-09-16 05:45] LABS: Hematocrit 30.3 % (35-47); Hemoglobin 9.5 gm/dl (12.0-16.0); Mean Cell Volume 94.1 fl (78-100); Mean Corpuscular Hemoglobin 29.5 pg (26-32); Mean Corpuscular Hgb Concent. 31.4 g/dl (32-36); Platelet Count 177 K/mm3 (150-450); Red Blood Count 3.22 M/mm3 (4.1-5.4); Red Cell Distribution Width 13.5 % (11.5-14.0); White Blood Count 8.7 K/mm3 (4.0-10.5)
[2017-09-16 06:57] LABS: ANION GAP 10.8 MEQ/L (5-15); BLOOD UREA NITROGEN 6 mg/dL (9-20); CHLORIDE 108 mEq/L (98-107); Calcium 8.6 mg/dL (8.5-10.1); Carbon Dioxide 26.6 mEq/L (21-32); Creatinine 1 0.58 mg/dl (0.55-1.30); EST GLOMERULAR FILTRATION RATE > 60 ML/MIN; Glucose 110 MG/DL (70-110); Potassium 3.1 mEq/L (3.5-5.1); SODIUM 142 mEq/L (136-145)
--- NOTE | 2017-09-16 07:40 | CONS ---
CONSULT DATE: 09/15/2017 REASON FOR CONSULT: Fracture hemipelvis on the right. HISTORY: The patient is an elderly white female 87 years of age with fall, trauma and right hemipelvis fracture seen on x-ray. I reviewed the x-ray that showed a minimally displaced fracture of the ischial tuberosity presumably of the pubic ramus on the right and this is stable fracture pattern. The patient is tender and sore over the superior portion of the groin and over the mid-point just inferior to the umbilicus. No neurovascular deficits appreciated. No soft tissue abnormalities in the legs. Log roll unremarkable at the current time. IMPRESSION: Stable fracture right hemipelvis. PLAN: Surgery is not indicated. She is a nonsurgical candidate. She is stable. She will heal up in the next three to six weeks with a walker. She can start weight bearing as tolerated immediately. I will have the Cabrera removed on an order today. Continue Lovenox and switch to aspirin p.o. daily on dismissal and thigh-high ALYCIA hose will be recommended. I will follow up with her in the office in the coming week.
--- NOTE | 2017-09-16 08:54 | PCM.NOTE ---
Date and Time: 09/16/17 0849 Subjective Assessment: She c/o feeling "terrible" because she feels weak. Sujit po. Denies pain. Objective Exam General Appearance: no apparent distress, alert Neurologic Exam: oriented x 3, cooperative Skin Exam: normal color, warm, dry, No rash Respiratory Exam: normal breath sounds, lungs clear, No crackles/rales, No rhonchi, No wheezing Cardiovascular Exam: regular rate/rhythm, normal heart sounds, No murmur Extremity Exam: normal inspection, No pedal edema, No swelling OBJECTIVE DATA Vital Signs: Vital Signs - 24 hr Temp Pulse Resp BP BP Pulse Ox 09/16/17 07:49 97.7 F 73 18 125/58 96 09/16/17 04:30 97.0 F 75 18 129/61 97 09/16/17 00:13 76 16 09/15/17 20:00 98.2 F 84 16 110/52 96 09/15/17 15:54 99.3 F 82 18 132/60 96 09/15/17 11:18 98.5 F 77 16 167/61 97 09/15/17 09:16 80 Pain Assessment - Last Documented Pain Intensity 6 Pain Scale Used 0-10 Pain Scale,FLACC Intake and Output: Intake & Output 09/13/17 09/14/17 09/15/17 09/16/17 11:59 11:59 11:59 11:59 Intake Total 1069 2213 Output Total 1000 2000 Balance 69 213 Weight 50.1 kg 50.1 kg Lab Results: Lab Results-Last 24 Hours 09/15/17 09/16/17 09/16/17 Range/Units 08:10 05:15 05:15 WBC 8.7 (4.0-10.5) K/mm3 RBC 3.22 L (4.1-5.4) M/mm3 Hgb 9.5 L (12.0-16.0) gm/dl Hct 30.3 L (35-47) % MCV 94.1 (78-100) fl MCH 29.5 (26-32) pg MCHC 31.4 L (32-36) g/dl RDW 13.5 (11.5-14.0) % Plt Count 177 (150-450) K/mm3 MPV 10.0 H (6-9.5) fl Sodium 142 (136-145) mEq/L Potassium 3.3 L 3.1 L (3.5-5.1) mEq/L Chloride 108 H (98-107) mEq/L Carbon Dioxide 26.6 (21-32) mEq/L Anion Gap 10.8 (5-15) MEQ/L BUN 6 L (9-20) mg/dL Creatinine 0.58 (0.55-1.30) mg/dl Estimated GFR > 60 ML/MIN Glucose 110 (70-110) MG/DL Calcium 8.6 (8.5-10.1) mg/dL Magnesium 1.5 L 1.4 L (1.8-2.4) mg/dL Multi-Disciplinary Progress Notes: Multi-Disciplinary Progress Notes 09/15/17 11:48 Case Management Note by Linda Banegas LEVEL I AND LOC DOCUMENTED AND QUEUED FOR REVIEW IN [facility]. 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 SPOKE WITH RAND. Initialized on 09/15/17 11:32 - END OF NOTE 09/15/17 11:20 (created 09/15/17 11:19) Case Management Note by Jeri Worrell DISCHARGE PLAN REVIEWED WITH PT AND FAMILY. PT IS PLEASANTLY CONFUSED AT PRESENT. REPORTS THAT SHE DOES NOT REMEMBER SEEING HER THIS MORNING. DAUGHTER REDIRECTS PT AND STATES, "YES DR. LEZAMA DID SEE YOU THIS MORNING." DAUGHTER REPORTS THAT NORMALLY PT LIVES ALONE AND PROVIDES SELF CARE. REPORTS THAT THEY HAVE JUST TAKEN HER DRIVING PRIVILEGES AWAY NOT LONG AGO. DAUGHTER ALSO, REPORTS THAT THIS IS PT'S FOURTH FALL AND SHE IS WORRIED THAT SHE NEEDS A REHAB STAY ON DISCHARGE. REPORTS THAT SHE CAN NOT BE AVAILABLE TO CARE FOR PT 24/ AND SHE UNDERSTANDS THAT IS WHAT SHE WILL NEED ON DISCHARGE. SON INTERJECTS AND REPORTS THAT THEY HAVE DISCUSSED [facility], AND THAT ARE REQUESTING A REFERRAL TO [facility] FOR REHAB STAY ON DISCHARGE. DECLINED ADDNL NEEDS AT PRESENT. PROVIDED WITH IMPORTANT MESSAGE FROM [employer], SIGNED, PROVIDED WITH COPY AND ORIGINAL PLACED IN CHART. Initialized on 09/15/17 11:19 - END OF NOTE Assessment/Plan (1) Closed fracture of symphysis pubis Current Visit: Yes Status: Acute Qualifiers: Encounter type: initial encounter Laterality: right Qualified Code(s): S32.591A - Other specified fracture of right pubis, initial encounter for closed fracture Assessment & Plan: Dr. Stapleton saw the pt, thank you! Non surgical managment, up with PT Code(s): S32.599A - OTH FRACTURE OF UNSP PUBIS, INIT ENCNTR FOR CLOSED FRACTURE (2) Hypokalemia Current Visit: Yes Status: Acute Assessment & Plan: improved on po potassium, recheck in a.m. Code(s): E87.6 - HYPOKALEMIA (3) History of recent fall Current Visit: Yes Status: Acute Code(s): Z91.81 - HISTORY OF FALLING
[2017-09-16] MEDS: ECOTRIN 81 MG PO SCH (09:21)
[2017-09-16] MEDS: Calcium 500MG W/Vit D Tablet PO SCH (09:21)
[2017-09-16] MEDS: Klor Con 10 MEQ PO SCH ×2 (09:22→22:16)
[2017-09-16] MEDS: LASIX 20 MG PO SCH (09:22)
[2017-09-16] MEDS: ENOXAPARIN SODIUM SQ SCH (09:22)
[2017-09-16] MEDS: Lanoxin 0.125MG TABLET PO SCH (09:23)
[2017-09-16] MEDS: NORVASC 5 MG PO SCH (09:23)
[2017-09-16] MEDS: SYNTHROID 75 MCG PO SCH (09:23)
[2017-09-16] MEDS: THERAGRAN MULTIVITAMIN PO SCH (09:24)
[2017-09-16] MEDS: xanAX 0.25 MG PO SCH ×2 (09:25→22:16)
[2017-09-16] MEDS: Zocor 10MG PO SCH (09:25)
[2017-09-16] MEDS: Dextrose 5%-Lr IV Solution 1000 ML 1,000 ML IV SCH (14:28)
[2017-09-17] MEDS: FLAGYL 500 MG IVPB 500 MG/100 ML BAG IV SCH (05:06)
[2017-09-17 06:18] LABS: Hematocrit 32.5 % (35-47); Hemoglobin 10.3 gm/dl (12.0-16.0); Mean Cell Volume 93.4 fl (78-100); Mean Corpuscular Hgb Concent. 31.7 g/dl (32-36); Mean Platelet Volume 10.1 fl (6-9.5); Platelet Count 190 K/mm3 (150-450); Red Blood Count 3.48 M/mm3 (4.1-5.4); Red Cell Distribution Width 13.5 % (11.5-14.0); White Blood Count 8.5 K/mm3 (4.0-10.5)
[2017-09-17 06:20] LABS: ANION GAP 9.5 MEQ/L (5-15); BLOOD UREA NITROGEN 4 mg/dL (9-20); CHLORIDE 106 mEq/L (98-107); Calcium 9.1 mg/dL (8.5-10.1); Carbon Dioxide 29.3 mEq/L (21-32); Creatinine 1 0.58 mg/dl (0.55-1.30); EST GLOMERULAR FILTRATION RATE > 60 ML/MIN; Glucose 109 MG/DL (70-110); Potassium 3.1 mEq/L (3.5-5.1); SODIUM 142 mEq/L (136-145)
[2017-09-17 06:29] LABS: Mean Corpuscular Hemoglobin 29.5 pg (26-32)
[2017-09-17 07:29] VITALS: BP 118/68; O2SAT 94
[2017-09-17] MEDS: Norco 10/325 MG Tablet PO PRN (08:10)
--- NOTE | 2017-09-17 09:32 | PCM.DS ---
Discharge Summary Date of Admission: 09/14/17 16:05 Admitting Physician: JAMILAH LEZAMA Consults: Consults on Case 09/15/17 08:55 Consult Ortho ROUTINE Primary Care Provider: JAMILAH LEZAMA Allergies Allergies calcitonin,salmon,synthetic [From Miacalcin] Allergy (Verified 09/14/17 13:40) erythromycin base [Erythromycin Base] Allergy (Verified 09/14/17 13:40) Rash raloxifene HCl [From Evista] Allergy (Verified 09/14/17 13:40) Hospital Summary - Hospital Course Hospital Course: Pt admitted from home with fall and R pelvic fx, nondisplaced. C-spine and head CTs without acute changes. Ortho evaluated, thank you, non surgical management and PT. Pt is c/o weakness, no pain except with movement. She will be transferred to LTCF today for further therapy. - Vitals & Intake/Output Vital Signs: Vital Signs Temperature 98.6 F 09/17/17 07:28 Pulse Rate 63 09/17/17 07:28 Respiratory Rate 20 09/17/17 07:28 Blood Pressure 118/68 09/17/17 07:28 O2 Sat by Pulse Oximetry 94 L 09/17/17 07:28 Intake & Output: Intake & Output 09/14/17 09/15/17 09/16/17 09/17/17 11:59 11:59 11:59 11:59 Intake Total 1069 2213 1873 Output Total 1000 2000 3050 Balance 69 213 -1177 Weight 50.1 kg 50.1 kg 49.1 kg - Lab Result Diagrams: 09/17/17 05:20 09/17/17 05:20 Lab Results-Last 24 Hrs: Lab Results-Last 24 Hours 09/17/17 09/17/17 Range/Units 05:20 05:20 WBC 8.5 (4.0-10.5) K/mm3 RBC 3.48 L (4.1-5.4) M/mm3 Hgb 10.3 L (12.0-16.0) gm/dl Hct 32.5 L (35-47) % MCV 93.4 (78-100) fl MCH 29.5 (26-32) pg MCHC 31.7 L (32-36) g/dl RDW 13.5 (11.5-14.0) % Plt Count 190 (150-450) K/mm3 MPV 10.1 H (6-9.5) fl Sodium 142 (136-145) mEq/L Potassium 3.1 L (3.5-5.1) mEq/L Chloride 106 (98-107) mEq/L Carbon Dioxide 29.3 (21-32) mEq/L Anion Gap 9.5 (5-15) MEQ/L BUN 4 L (9-20) mg/dL Creatinine 0.58 (0.55-1.30) mg/dl Estimated GFR > 60 ML/MIN Glucose 109 (70-110) MG/DL Calcium 9.1 (8.5-10.1) mg/dL - Procedures and Test Procedures and Tests throughout Hospitalization: Therapy Orders & Screens 09/14/17 17:11 OT Screen per Nursing Assess Comment: Protocol Order Physician Instructions: Greater than 3 points order OT Admission Screening Reason For Exam: Triggered on Admission Diagnosis: fractured pelvis Open Wound/Cellutlitis/Pressure Ulcers: No Acute Fx/ORIF/Change in wt bearing status: Yes Severe MUSCULOSKELETAL pain: Yes ADL Dysfunction: Yes Acute CVA w/Hemiparesis/Hemiplegia: No Decreased Functional Mobility/Strength: Yes Sprain/Strain: No Acute Post-op Mobility Dysfunction: No Total Points: 14 PT Screen per Nursing Assess Comment: Protocol Order Physician Instructions: Greater than 3 points order PT Admission Screenin Reason For Exam: Triggered on Admission Diagnosis: fractured pelvis Open Wound/Cellutlitis/Pressure Ulcers: No Acute Fx/ORIF/Change in wt bearing status: Yes Severe MUSCULOSKELETAL pain: Yes ADL Dysfunction: Yes Acute CVA w/Hemiparesis/Hemiplegia: No Decreased Functional Mobility/Strength: Yes Sprain/Strain: No Acute Post-op Mobility Dysfunction: No Total Points: 14 09/15/17 08:56 PT Eval & Treat ( Order) ROUTINE Reason for Eval:: Pelvic fracture - ortho consult pending. Diagnosis: fractured pelvis 09/15/17 17:00 PT Eval & Treat ( Order) ROUTINE Reason for Eval:: WB as tolerated with walker with P.T. Daily. Diagnosis: fractured pelvis Discharge Exam General Appearance: no apparent distress, alert Neurologic Exam: cooperative, disoriented Skin Exam: normal color, warm, dry, No rash Respiratory Exam: normal breath sounds, lungs clear, No crackles/rales, No rhonchi, No wheezing Cardiovascular Exam: regular rate/rhythm, normal heart sounds, murmur (II/ sys murmur as usual) Gastrointestinal/Abdomen Exam: soft, normal bowel sounds, No tenderness, No distention, No mass, No guarding, No rebound Extremity Exam: normal inspection, No pedal edema, No swelling Back Exam: normal inspection, No rash Final Diagnosis/Problem List - Final Discharge Diagnosis/Problem (1) Closed fracture of symphysis pubis Current Visit: Yes Status: Acute Assessment & Plan: to LTCF for rehab today. (2) Hypokalemia Current Visit: Yes Status: Resolved (3) History of recent fall Current Visit: Yes Status: Acute (4) Diarrhea Current Visit: Yes Status: Acute Assessment & Plan: on flagyl. c. diff neg. - Discharge Disposition: [place] TO [facility] Condition: Stable Prescriptions: New Metronidazole [Flagyl] 500 mg PO TID #12 tablet Potassium Chloride 10 Meq Tab* [Klor Con 10 MEQ] 20 meq PO BID #60 tab Hydrocodone/APAP 10/325 mg [Hale 10/325 MG Tablet] 1 tab PO Q4H PRN PRN #42 tablet MDD 6 PRN Reason: Pain Alprazolam 0.25 mg [xanAX 0.25 MG] 0.25 mg PO BID tablet Continue Atorvastatin Calcium [Lipitor] 10 mg PO DAILY Amlodipine Besylate [Norvasc] 5 mg PO DAILY Furosemide 20 mg PO DAILY Aspirin 81 mg PO DAILY Krill/Om3/Dha/Epa/Om6/Lip/Astx [Krill Oil 1,000 mg Softgel] 1 each PO DAILY Levothyroxine Sodium 112 Mcg [Synthroid 112 Mcg] 37.5 mcg PO DAILY Alendronate Sodium [Fosamax] 70 mg PO WEEKLY Multivitamin [Multivitamins] 1 each PO DAILY Calcium Carbonate [Calcium] 600 mg PO DAILY Ascorbic Acid [Vitamin C] 1,000 mg PO DAILY Digoxin 0.125 mg Tablet [Lanoxin 0.125MG TABLET] 0.125 mg PO DAILY Selenomethionine [Selenium] 200 mcg PO DAILY Discontinued Alprazolam 0.25 mg [xanAX 0.25 MG] 0.25 mg PO TIDPRN Potassium 99 mg PO BID Follow up with: AMIE SHER [ACTIVE STAFF] - 1 Week (f/u in 2 weeks) JAMILAH LEZAMA [Primary Care Provider] -
[2017-09-17] MEDS: LASIX 20 MG PO SCH (09:36)
[2017-09-17] MEDS: SYNTHROID 75 MCG PO SCH (09:36)
[2017-09-17] MEDS: Zocor 10MG PO SCH (09:36)
[2017-09-17] MEDS: Klor Con 10 MEQ PO SCH (09:36)
[2017-09-17] MEDS: ECOTRIN 81 MG PO SCH (09:36)
[2017-09-17] MEDS: NORVASC 5 MG PO SCH (09:36)
[2017-09-17] MEDS: THERAGRAN MULTIVITAMIN PO SCH (09:36)
[2017-09-17] MEDS: xanAX 0.25 MG PO SCH (09:36)
[2017-09-17] MEDS: Calcium 500MG W/Vit D Tablet PO SCH (09:36)
[2017-09-17] MEDS: ENOXAPARIN SODIUM SQ SCH (09:37)
[2017-09-17] MEDS: Lanoxin 0.125MG TABLET PO SCH (09:37)
[2017-09-17 09:41] VITALS: PULSE 76
[2017-09-19] MEDS ORDERED: Fosamax 70 MG PO SCH (06:00)
== END 2017-09-17 10:15 | DRG 536 ==
LOC: ED 13:07 → MED SURG 16:05
PROVIDERS: ADMIT Family Medicine; ATTEND Family Medicine
DX: S32.591A Other specified fracture of right pubis, initial encounter for closed fracture (principal); R55 Syncope and collapse; S32.599A Other specified fracture of unspecified pubis, initial encounter for closed fracture; W19.XXXA Unspecified fall, initial encounter; Z91.81 History of falling; Y92.29 Other specified public building as the place of occurrence of the external cause; E87.6 Hypokalemia; R19.7 Diarrhea, unspecified; Z79.899 Other long term (current) drug therapy; F03.90 Unspecified dementia, unspecified severity, without behavioral disturbance, psychotic disturbance, mood disturbance, and anxiety; E03.9 Hypothyroidism, unspecified; M81.0 Age-related osteoporosis without current pathological fracture
CPT/HCPCS: 36000; 36415; 51702; 70450; 71045; 72100; 72125; 72170; 80048; 80053; 80162; 81002; 83605; 83735; 84132; 84134; 84484; 85025; 85027; 85610; 85730; 87493; 93005; 96360; 96361; 96374; 99285; J1200; J1630; J1650; J2060; J3010; J3480; A9270-GY

== ENCOUNTER 2017-10-05 19:17 | Emergency (ER) | payer MEDICARE, OTHER ==
[2017-10-05] MEDS ORDERED: XYLOCAINE 1% HCL 20 ML MDV IJ ONE (19:55)
[2017-10-05] MEDS ORDERED: TENIVAC VIAL IM ONE ×2 (19:55→20:21)
[2017-10-05] MEDS ORDERED: BACIGUENT PACKET TP ONE (19:55)
--- NOTE | 2017-10-05 20:01 | ERPHSYRPT ---
- History of Present Illness Time Seen by Provider: 10/05/17 19:43 Source: patient, family (DAUGHTER) Exam Limitations: no limitations Patient Subjective Stated Complaint: pt here for a fall out of wc and hit head on floor. pt alert but confused, keeps yelling for daughter, no loc. Triage Nursing Assessment: pt has laceration to right eyebrow, no bleeding at present time, no other bruising or abrasions noted Physician History: ABOUT 45 MINUTES AGO PT FELL OUT OF HER WHEELCHAIR AND HIT THE RIGHT SIDE OF HER HEAD WITH RESULTANT LACERATION TO THE RIGHT EYEBROW AND HEADACHE. LOC, CHEST PAIN, ABDOMINAL PAIN, WEAKNESS, NUMBNESS ALL DENIED. Allergies/Adverse Reactions: calcitonin,salmon,synthetic [From Miacalcin] Allergy (Verified 10/05/17 19:25) erythromycin base [Erythromycin Base] Allergy (Verified 10/05/17 19:25) Rash raloxifene HCl [From Evista] Allergy (Verified 10/05/17 19:25) Home Medications: Amlodipine Besylate [Norvasc] 5 mg PO DAILY 01/11/14 [History] Aspirin 81 mg PO DAILY 01/11/14 [History] Atorvastatin Calcium [Lipitor] 10 mg PO DAILY 01/11/14 [History] Furosemide 20 mg PO DAILY 01/11/14 [History] Krill/Om3/Dha/Epa/Om6/Lip/Astx [Krill Oil 1,000 mg Softgel] 1 each PO DAILY 06/11 [History] Levothyroxine Sodium 112 Mcg [Synthroid 112 Mcg] 37.5 mcg PO DAILY [History] Alendronate Sodium [Fosamax] 70 mg PO WEEKLY 03/13/17 [History] Ascorbic Acid [Vitamin C] 1,000 mg PO DAILY 09/14/17 [History] Calcium Carbonate [Calcium] 600 mg PO DAILY 09/14/17 [History] Digoxin 0.125 mg Tablet [Lanoxin 0.125MG TABLET] 0.125 mg PO DAILY [History] Multivitamin [Multivitamins] 1 each PO DAILY 09/14/17 [History] Selenomethionine [Selenium] 200 mcg PO DAILY 09/14/17 [History] Hx Tetanus, Diphtheria Vaccination/Date Given: (unknown) Hx Influenza Vaccination/Date Given: (unknown) Hx Pneumococcal Vaccination/Date Given: (unknown) Immunizations Up to Date: Yes - Review of Systems Cardiac: No Chest Pain Abdominal/Gastrointestinal: No Abdominal Pain, No Vomiting Skin: Other (LACERATION TO RIGHT EYEBROW TODAY) Neurological: Headache, No Sensory Changes All Other Systems: Reviewed and Negative - Past Medical History Pertinent Past Medical History: Yes Neurological History: Dementia ENT History: No Pertinent History Cardiac History: Other Respiratory History: No Pertinent History Endocrine Medical History: Hypothyroidism Musculoskeletal History: Osteoarthritis, Osteoporosis GI Medical History: No Pertinent History History: No Pertinent History Psycho-Social History: No Pertinent History, Other Female Reproductive Disorders: No Pertinent History Other Medical History: Valve repair. Fracture. Hypothyroidism - Past Surgical History Past Surgical History: Yes Neuro Surgical History: No Pertinent History Cardiac: No Pertinent History Respiratory: No Pertinent History Gastrointestinal: Cholecystectomy Genitourinary: No Pertinent History Musculoskeletal: No Pertinent History Female Surgical History: No Pertinent History - Social History Smoking Status: Unknown if ever smoked Exposure to second hand smoke: No Alcohol Use: None Drug Use: none Patient Lives Alone: No - Female History Hx Last Menstrual Period: post Hx Now: No - Nursing Vital Signs Nursing Vital Signs: Initial Vital Signs Temperature 97.8 F 10/05/17 19:18 Pulse Rate 61 10/05/17 19:18 Respiratory Rate 18 10/05/17 19:18 Blood Pressure 138/88 10/05/17 19:18 O2 Sat by Pulse Oximetry 94 L 10/05/17 19:18 Pain Scale Pain Intensity 4 - Physical Exam General Appearance: alert Eye Exam: PERRL/EOMI Ears, Nose, Throat Exam: TMs normal, pharynx normal, moist mucous membranes Neck Exam: normal inspection Respiratory Exam: lungs clear Cardiovascular Exam: murmur (3/6 SYSTOLIC MURMUR) Gastrointestinal/Abdomen Exam: soft, normal bowel sounds Back Exam: other (KYPHOSIS), No vertebral tenderness Extremity Exam: No pedal edema, No tenderness Neurologic Exam: alert, cooperative, sensation nml, other (PAINTING WORKER +5/+5.) Skin Exam: laceration (2 CM LACERATION TO RIGHT EYEBROW WITH MILD EDEMA) SpO2 Interpretation: normal SpO2: 94 Oxygen Delivery: Room Air Procedures - Laceration/Wound Repair Face Wound Location: face (RIGHT EYEBROW) Wound Length (cm): 2 Wound's Depth, Shape: superficial Wound Explored: clean Irrigated: No Hibiclens Prep: No Anesthesia: 1% Lidocaine Volume Anesthetic (ccs): 1 Wound Repaired With: sutures Suture Size/Type: 5-0, prolene Number of Sutures: 5 Layer Closure?: No - Course Nursing assessment & vital signs reviewed: Yes - CT Exams Head CT Interpretation: Discussed w/radiologist (COMPARED TO 09-14-17: MOTION ARTIFACT. GROSSLY STABLE NONACUTE SENILE BRAIN. ) Cervical Spine CT Interpretation: Discussed w/radiologist (COMPARED TO 09-14-17: MOTION ARTIFACT. GROSSLY STABLE C4-C6 DDD. NEGATIVE FX/SUBLUXATION.) Ordered Tests: Active Orders 24 hr Category Date Time Status Cath for Specimen-Straight STAT Care 10/05/17 21:00 Active IV Insertion STAT Care 10/05/17 20:58 Active Prepare for Sutures STAT Care 10/05/17 19:55 Active Sutures STAT Care 10/05/17 19:55 Active Wound Care STAT Care 10/05/17 19:55 Active CERVICAL SPINE WO CONTRAST [CT] Stat Exams 10/05/17 19:54 Taken HEAD WITHOUT CONTRAST [CT] Stat Exams 10/05/17 19:54 Taken CBC W DIFF Stat Lab 10/05/17 21:00 Completed CMP Stat Lab 10/05/17 21:00 Completed MAG [MAGNESIUM] Stat Lab 10/05/17 21:00 Completed UA W/RFX UR CULTURE Stat Lab 10/05/17 22:30 Completed Medication Summary Generic Name Dose Route Start Last Admin Trade Name Freq PRN Reason Stop Dose Admin Lactated Ringer's 1,000 mls @ 100 mls/hr 10/05/17 21:00 10/05/17 21:28 Lactated Ringers IV 11/04/17 20:59 100 mls/hr .Q10H FIDEL Administration Discontinued Medications Generic Name Dose Route Start Last Admin Trade Name Freq PRN Reason Stop Dose Admin Bacitracin 0.9 gm 10/05/17 19:55 10/05/17 21:54 Baciguent Packet TP 10/05/17 19:56 0.9 gm STAT ONE Administration Bacitracin Confirm 10/05/17 20:18 Baciguent Packet Administered 10/05/17 20:19 Dose 1 gm .ROUTE .STK-MED ONE Hydromorphone HCl 0.5 mg 10/05/17 20:52 10/05/17 22:42 Hydromorphone 1 Mg/Ml Ampule IM 10/05/17 20:53 Not Given STAT ONE Hydromorphone HCl Confirm 10/05/17 20:57 Dilaudid 2 Mg Injection Administered 10/05/17 20:58 Dose 2 mg .ROUTE .STK-MED ONE Hydromorphone HCl 0.5 mg 10/05/17 20:59 10/05/17 21:28 Hydromorphone 1 Mg/Ml Ampule IV 10/05/17 21:00 0.5 mg STAT ONE Administration Lidocaine HCl 5 ml 10/05/17 19:55 10/05/17 21:55 Xylocaine 1% Hcl 20 Ml Mdv IJ 10/05/17 19:56 5 ml STAT ONE Administration Lidocaine HCl Confirm 10/05/17 20:18 Xylocaine 1% Hcl 20 Ml Mdv Administered 10/05/17 20:19 Dose 5 ml .ROUTE .STK-MED ONE Promethazine HCl 12.5 mg 10/05/17 20:52 10/05/17 22:43 Phenergan 25 Mg Inj IM 10/05/17 20:53 Not Given STAT ONE Promethazine HCl Confirm 10/05/17 20:57 Phenergan 25 Mg Inj Administered 10/05/17 20:58 Dose 25 mg .ROUTE .STK-MED ONE Promethazine HCl 12.5 mg 10/05/17 20:59 10/05/17 21:28 Phenergan 25 Mg Inj IV 10/05/17 21:00 12.5 mg STAT ONE Administration Tetanus/Diphtheria Toxoids Adsorbed 0.5 ml 10/05/17 19:55 10/05/17 20:28 Tenivac Vial IM 10/05/17 19:56 0.5 ml .ONCE ONE Administration Tetanus/Diphtheria Toxoids Adsorbed Confirm 10/05/17 20:21 Tenivac Vial Administered 10/05/17 20:22 Dose 0.5 ml IM .STK-MED ONE Lab/Rad Data: Laboratory Result Diagrams 10/05/17 21:00 10/05/17 21:00 Laboratory Results 03/12/18 03/12/18 03/12/18 Range/Units 22:30 21:00 21:00 WBC (4.0-10.5) K/mm3 RBC (4.1-5.4) M/mm3 Hgb (12.0-16.0) gm/dl Hct (35-47) % MCV (78-100) fl MCH (26-32) pg MCHC (32-36) g/dl RDW (11.5-14.0) % Plt Count (150-450) K/mm3 MPV (6-9.5) fl Gran % (36.0-66.0) % Lymphocytes % (24.0-44.0) % Monocytes % (0.0-12.0) % Eosinophils % (0.00-5.0) % Basophils % (0.0-0.4) % Basophils # (0-0.4) Sodium 142 (137-145) mmol/L Potassium 3.6 (3.5-5.1) mmol/L Chloride 102 (98-107) mmol/L Carbon Dioxide 27 (22-30) mmol/L Anion Gap 16.6 H (5-15) MEQ/L BUN 16 (7-17) mg/dL Creatinine 0.61 (0.52-1.04) mg/dL Estimated GFR > 60 ML/MIN Glucose 111 H (74-106) mg/dL Calcium 10.1 (8.4-10.2) mg/dL Magnesium 2.1 (1.6-2.3) mg/dL Total Bilirubin 0.20 (0.2-1.3) mg/dL AST 36 (14-36) U/L ALT 22 (0-35) U/L Alkaline Phosphatase 169 H (38-126) U/L Serum Total Protein 7.7 (6.3-8.2) gm/dL Albumin 4.3 (3.5-5.0) g/dL Ur Collection Type CLEAN CATCH Urine Color YELLOW (YELLOW) Urine Appearance CLEAR (CLEAR) Urine pH 8.0 (5-6) Ur Specific Valliant 1.010 (1.005-1.025) Urine Protein NEGATIVE (Negative) Urine Ketones NEGATIVE (NEGATIVE) Urine Blood NEGATIVE (0-5) Devon/ul Urine Nitrite NEGATIVE (NEGATIVE) Urine Bilirubin NEGATIVE (NEGATIVE) Urine Urobilinogen NORMAL (0-1) mg/dL Ur Leukocyte Esterase NEGATIVE (NEGATIVE) Urine Culture Reflexed NO (NO) Urine Glucose NEGATIVE (NEGATIVE) mg/dL Specimen Received 10/05/17 2230 10/05/17 Range/Units 21:00 WBC 8.0 (4.0-10.5) K/mm3 RBC 3.89 L (4.1-5.4) M/mm3 Hgb 11.3 L (12.0-16.0) gm/dl Hct 35.6 (35-47) % MCV 91.5 (78-100) fl MCH 29.0 (26-32) pg MCHC 31.7 L (32-36) g/dl RDW 14.1 H (11.5-14.0) % Plt Count 348 (150-450) K/mm3 MPV 9.1 (6-9.5) fl Gran % 55.7 (36.0-66.0) % Lymphocytes % 31.0 (24.0-44.0) % Monocytes % 10.3 (0.0-12.0) % Eosinophils % 2.5 (0.00-5.0) % Basophils % 0.5 (0.0-0.4) % Basophils # 0.04 (0-0.4) Sodium (137-145) mmol/L Potassium (3.5-5.1) mmol/L Chloride (98-107) mmol/L Carbon Dioxide (22-30) mmol/L Anion Gap (5-15) MEQ/L BUN (7-17) mg/dL Creatinine (0.52-1.04) mg/dL Estimated GFR ML/MIN Glucose (74-106) mg/dL Calcium (8.4-10.2) mg/dL Magnesium (1.6-2.3) mg/dL Total Bilirubin (0.2-1.3) mg/dL AST (14-36) U/L ALT (0-35) U/L Alkaline Phosphatase (38-126) U/L Serum Total Protein (6.3-8.2) gm/dL Albumin (3.5-5.0) g/dL Ur Collection Type Urine Color (YELLOW) Urine Appearance (CLEAR) Urine pH (5-6) Ur Specific Valliant (1.005-1.025) Urine Protein (Negative) Urine Ketones (NEGATIVE) Urine Blood (0-5) Devon/ul Urine Nitrite (NEGATIVE) Urine Bilirubin (NEGATIVE) Urine Urobilinogen (0-1) mg/dL Ur Leukocyte Esterase (NEGATIVE) Urine Culture Reflexed (NO) Urine Glucose (NEGATIVE) mg/dL Specimen Received - Departure Time of Disposition: 22:56 Departure Disposition: Extended Care Facility Clinical Impression: HEAD CONTUSION, 2 CM LACERATION OF FACE, DEMENTIA, HYPOTHYROIDISM, ARTHRITIS Condition: Stable Critical Care Time: No Referrals: MARTA JOHNSON [Primary Care Provider] - Instructions: Laceration Repair With Stitches (DC), Preventing Falls Additional Instructions: FOLLOW UP WITH PRIVATE DOCTOR TOMORROW. KEEP CLEAN & DRY. NEOSPORIN & BANDAGE DAILY TO FACIAL WOUND FOR THE NEXT 10 DAYS. HAVE SUTURES REMOVED IN 10 DAYS.
[2017-10-05] MEDS ORDERED: XYLOCAINE 1% HCL 20 ML MDV ONE (20:18)
[2017-10-05] MEDS ORDERED: BACIGUENT PACKET ONE (20:18)
[2017-10-05] MEDS ORDERED: Phenergan 25 MG INJ IM ONE (20:52)
[2017-10-05] MEDS ORDERED: Hydromorphone 1 mg/ml Ampule IM ONE (20:52)
[2017-10-05] MEDS ORDERED: DILAUDID 2 MG INJECTION ONE (20:57)
[2017-10-05] MEDS ORDERED: Phenergan 25 MG INJ ONE (20:57)
[2017-10-05] MEDS ORDERED: Phenergan 25 MG INJ IV ONE (20:59)
[2017-10-05] MEDS ORDERED: Hydromorphone 1 mg/ml Ampule IV ONE (20:59)
[2017-10-05] MEDS ORDERED: Lactated Ringers 1,000 ML IV SCH (21:00)
[2017-10-05 21:11] LABS: BASOPHIL % 0.5 % (0.0-0.4); Basophil (Absolute #) 0.04 (0-0.4); Eosinophil % 2.5 % (0.00-5.0); Granulocyte Absolute (ANC) 4.45 (1.4-6.9); Granulocytes % 55.7 % (36.0-66.0); Hematocrit 35.6 % (35-47); Hemoglobin 11.3 gm/dl (12.0-16.0); Lymphocyte (Absolute #) 2.48 (1.0-4.6); Mean Cell Volume 91.5 fl (78-100); Mean Corpuscular Hgb Concent. 31.7 g/dl (32-36); Mean Platelet Volume 9.1 fl (6-9.5); Monocyte (Absolute #) 0.82 (0.0-1.3); Monocytes % 10.3 % (0.0-12.0); Platelet Count 348 K/mm3 (150-450); Red Blood Count 3.89 M/mm3 (4.1-5.4); Red Cell Distribution Width 14.1 % (11.5-14.0)
[2017-10-05 21:27] VITALS: O2SAT 94
[2017-10-05] MEDS ORDERED: Lactated Ringers 1,000 ML IV ONE (21:28)
[2017-10-05 21:32] LABS: ALBUMIN 4.3 g/dL (3.5-5.0); ALKALINE PHOSPHATASE 169 U/L (38-126); ANION GAP 16.6 MEQ/L (5-15); BLOOD UREA NITROGEN 16 mg/dL (7-17); CHLORIDE 102 mmol/L (98-107); Calcium 10.1 mg/dL (8.4-10.2); Carbon Dioxide 27 mmol/L (22-30); Creatinine 1 0.61 mg/dL (0.52-1.04); Glucose 111 mg/dL (74-106); Potassium 3.6 mmol/L (3.5-5.1); SGOT/AST 36 U/L (14-36); SGPT/ALT 22 U/L (0-35); SODIUM 142 mmol/L (137-145); Total Protein 7.7 gm/dL (6.3-8.2)
[2017-10-05 22:41] VITALS: BP 143/95; PULSE 82
[2017-10-05 22:44] LABS: Appearance CLEAR (CLEAR); Bilirubin NEGATIVE (NEGATIVE); Blood NEGATIVE Ery/ul (0-5); Glucose NEGATIVE (NEGATIVE); Ketones NEGATIVE (NEGATIVE); Leukocyte Esterase NEGATIVE (NEGATIVE); Nitrite NEGATIVE (NEGATIVE); Protein,Urine Dip NEGATIVE (Negative); Urobilinogen NORMAL mg/dL (0-1)
[2017-10-05] MEDS ORDERED: TORAdol 30 mg Injection IV ONE (22:57)
[2017-10-05] MEDS ORDERED: TORAdol 30 mg Injection ONE (23:01)
--- NOTE | 2017-10-06 08:34 | XRAY ---
Indication: Status post fall. Multiple contiguous axial images obtained through the cervical spine. Sagittal and coronal reformatted images obtained. Comparison: September 14, 2017. Several images are slightly degraded by motion artifact even with repeat CT. Axial images negative for acute fracture, suspicious bony lesions, or spinal canal stenosis. Stable mild C4-C6 degenerative endplate spurring and mild degenerative facet arthropathy. Sagittal and coronal reformatted images again demonstrates normal alignment with C5-C6 disc space narrowing. No acute compression fracture, subluxation, or jumped facet. Normal-appearing craniocervical junction. Visualized noncontrasted soft tissues again demonstrate scattered carotid calcifications left greater than right. Stable biapical pleural parenchymal fibrosis/scarring. CT head reported separately. Impression: 1. Motion artifact. 2. Grossly negative for acute fracture or subluxation. 3. Stable C4-C6 degenerative changes. CT DI 65.00
--- NOTE | 2017-10-06 08:35 | XRAY ---
Indication: Right orbital injury following fall. Multiple contiguous axial images obtained through the head without contrast. Comparison: September 14, 2017. Again several images are slightly degraded by motion artifact even with repeat CT. Stable age-appropriate global atrophy, mild periventricular degenerative micro-ischemia bilaterally, remote left basal ganglia lacunar infarct, and benign appearing brainstem calcifications. No acute intracranial hemorrhage, abnormal extra-axial fluid collection, or mass effect. Fourth ventricle is midline without hydrocephalus. Bony calvarium intact. Visualized paranasal sinuses and mastoid air cells are clear. Impression: Motion artifact. Grossly stable nonacute senile brain with again chronic features as detailed. CT DI 56.44
== END 2017-10-05 23:45 ==
LOC: ED 19:17
PROC: 08QNXZZ Repair Right Upper Eyelid, External Approach (ICD-10-PCS; principal; 2017-10-05)
DX: S01.111A Laceration without foreign body of right eyelid and periocular area, initial encounter (principal); S00.93XA Contusion of unspecified part of head, initial encounter; E03.9 Hypothyroidism, unspecified; M19.90 Unspecified osteoarthritis, unspecified site; W05.0XXA Fall from non-moving wheelchair, initial encounter; Y92.129 Unspecified place in nursing home as the place of occurrence of the external cause; F03.90 Unspecified dementia, unspecified severity, without behavioral disturbance, psychotic disturbance, mood disturbance, and anxiety; Z79.899 Other long term (current) drug therapy
CPT/HCPCS: 96372; 99285; 36000; 96360; 96361; 81002; 36415; 83735; 85025; 80053; 70450; 72125; 12011; P9612; 90471; 90714; 96374; 96375; J1170; J1885; J2550; A9270-GY